=== PATIENT | female | born 1955 | race Caucasian/White ===

== ENCOUNTER → 2020-03-02 09:35 | Outpatient (CLI) | payer BC, SELFPAY ==
--- NOTE | ~2020-03-02 | MR_ITS ---
EXAMINATION: MR brain/brain stem wo con DATE: 03/02/2020 10:47 INDICATION: Chronic headache. TECHNIQUE: Magnetic resonance imaging (MRI) of the brain and brainstem was performed without intraven ous contrast. Sequences included sagittal and axial T1-weighted FSE, axial diffusion-weighted FS EPI, axial T2*-weighted GRE, axial T2-weighted FLAIR Propeller, and axial T2-weighted Propeller. Apparent diffusion coefficient (ADC) maps were created. COMPARISON: None. FINDINGS: There are scattered areas of nonspecific increased T2-weighted signal intensity in the cere bral white matter, which is within normal limits for the patient's age. There is a 1.4 cm calcified e xtra-axial mass overlying right frontoparietal region with skull thickening, consistent with a mening ioma. There is no acute ischemic infarct or intracranial hemorrhage. The ventricles are normal in siz e. There is mild mucosal thickening in the paranasal sinuses. The orbits are normal. There is a trace left mastoid effusion. IMPRESSION: 1. 1.4 cm calcified extra-axial mass overlying right frontoparietal region, consistent with a meningi maxine. Reviewed, dictated and finalized at location A. UNITY PROGRAM ASSISTANT IMPRESSION: 1. 1.4 cm calcified extra-axial mass overlying right frontoparietal region, con sistent with a meningioma.
== END ==
PROVIDERS: PCP Physician Assistant; Visit Provider Physician Assistant
DX: G44.001 Cluster headache syndrome, unspecified, intractable (principal)
CPT/HCPCS: 70551

== ENCOUNTER 2020-03-20 09:49 | Outpatient (CLI) | payer BC, SELFPAY ==
--- NOTE | ~2020-03-20 | MM_ITS ---
EXAMINATION: MM screening [facility] BI w maggi HISTORY: Screening mammogram TECHNIQUE: Craniocaudal and mediolateral oblique 3-D tomosynthesis images were obtained and synthetic 2-D images were generated. CAD analysis was submitted and interpreted. COMPARISON: No prior mammogram is available for comparison at this institution. BREAST PARENCHYMAL COMPOSITION: The breasts are heterogeneously dense, which may obscure small masses . FINDINGS: There are occasional benign calcifications. There is no evidence of suspicious mass, calcif ication, or architectural distortion to suggest malignancy in either breast. There has been no suspic ious interval change. IMPRESSION: 1. No mammographic evidence of malignancy. 2. Recommend routine screening mammography in one year. BI-RADS Category 2: Benign finding(s). Reviewed, dictated and finalized at location A. SFER WORKER
== END 2020-03-20 09:50 | disposition home or self-care (01) ==
LOC: ANHIMG 09:51
PROVIDERS: PCP Physician Assistant; Visit Provider Physician Assistant
DX: Z12.31 Encounter for screening mammogram for malignant neoplasm of breast (principal)
CPT/HCPCS: 77063; 77067

== ENCOUNTER → 2021-06-30 08:40 | Outpatient (CLI) | payer BC, SELFPAY ==
--- NOTE | ~2021-06-30 | XR_ITS ---
EXAMINATION: XR shoulder LT min 2V DATE: 06/30/2021 08:57 INDICATION: Left shoulder pain. TECHNIQUE: 4 views of left shoulder were obtained. COMPARISON: None. FINDINGS: Bone alignment is normal. No fracture. There is mild osteoarthritis of glenohumeral joint a nd moderate osteoarthritis of acromioclavicular joint. IMPRESSION: 1. Polyarticular osteoarthritis. Reviewed, dictated and finalized at location A. CORE DEVELOPER
== END ==
PROVIDERS: PCP Physician Assistant; Visit Provider Physician Assistant
DX: M25.512 Pain in left shoulder (principal); G89.29 Other chronic pain; M19.012 Primary osteoarthritis, left shoulder
CPT/HCPCS: 73030

== ENCOUNTER 2022-01-29 07:53 | Outpatient (CLI) | payer BC, SELFPAY ==
--- NOTE | ~2022-01-29 | MM_ITS ---
EXAMINATION: MM screening [facility] BI w maggi HISTORY: Screening mammogram, family history of breast cancer in her sister. TECHNIQUE: Craniocaudal and mediolateral oblique 3-D tomosynthesis images were obtained and synthetic 2-D images were generated. CAD analysis was submitted and interpreted. COMPARISON: 03/20/2020 BREAST PARENCHYMAL COMPOSITION: The breasts are heterogeneously dense, which may obscure small masses . FINDINGS: No suspicious mass, calcification, or architectural distortion are identified in either hanna ast to suggest malignancy. There has been no suspicious interval change. IMPRESSION: 1. No mammographic evidence of malignancy. 2. Recommend routine screening mammography in one year. BI-RADS Category 1: Negative Reviewed, dictated and finalized at location B.
== END 2022-01-29 07:54 | disposition home or self-care (01) ==
PROVIDERS: PCP Family Medicine; Visit Provider Physician Assistant
DX: Z12.31 Encounter for screening mammogram for malignant neoplasm of breast (principal)
CPT/HCPCS: 77063; 77067

== ENCOUNTER 2022-05-12 01:19 | Day surgery (SDC) | payer MEDICARE, SELFPAY ==
[2022-05-01 15:13] VITALS: BMI 23.0
[2022-05-12 08:52] VITALS: BP 111/96; PULSE 72; RESP 18; TEMP 36.4; O2SAT 100
--- NOTE | 2022-05-12 09:05 | WPDHPUPDATE1 ---
History and Physical Update Update Date/Time: 05/12/22 09:05 History and Physical has been reviewed, including an updated exam of the patient. There are NO changes in the patient's condition. Risks, benefits, and alternatives have been discussed and questions answered. Patient agrees to proceed with procedure.
[2022-05-12] MEDS: LACTATED RINGERS 1,000 ML 150 ML IV CONT (09:06)
--- NOTE | 2022-05-12 09:47 | WPDANESEPPF ---
Anes - Initial Pre Proc Eval Procedure: Operation Date: 05/12/22 10:00 Proposed Procedures p Colonoscopy - Ace Herbert MD Date/Time: 05/12/22 09:47 Surgeon: Ace Herbert MD Pre Op Diagnosis: change in bowel habits,constipation, hematochezia Patient Data Age: 67 Gender: F Height: 1.6 m Weight: 58.6 kg Last Vital Signs Temp 97.6 F 05/12/22 08:52 Pulse 72 05/12/22 08:52 Resp 18 05/12/22 08:52 BP 111/96 H 05/12/22 08:52 Pulse Ox 100 05/12/22 08:52 O2 Del Method Room Air 05/12/22 08:52 Allergies Allergy/AdvReac Type Severity Reaction Status Date / Time eucalyptus AdvReac Sneezing Verified 05/12/22 08:50 Home Medications Medication Instructions Recorded Confirmed Type aspirin 81 mg tablet,delayed 81 mg PO DAILY 04/28/22 05/01/22 History release (Adult Aspirin Regimen) ondansetron HCl 4 mg tablet 4 mg PO Q8H PRN Nausea 04/28/22 05/01/22 History rizatriptan 10 mg tablet (Maxalt) 10 mg PO DAILY PRN Migraine 04/28/22 05/01/22 History Headache rosuvastatin 40 mg tablet 40 mg PO DAILY 04/28/22 05/01/22 History topiramate 25 mg tablet (Topamax) 25 mg PO DAILY 04/28/22 05/01/22 History Patient hx anesthesia problems: post op nausea/vomiting Family hx anesthesia problems: none Results Review: All pre-operative results and documents have been reviewed as part of the pre-operative evaluation. [facility] Past Medical History Medical History History of actinic keratosis History of back pain Family History Family History Father Cerebrovascular accident Other Diabetes mellitus Social History Social History Smoking status: Never smoker Alcohol intake: current Alcohol use details: 5 drinks per year Substance use type: does not use Living arrangements: with family Spiritual care concerns: No Anes - Eval Final PreProcedure Day of Procedure 05/12/22 09:47 Patient weight: normal Heart: regular rate and rhythm Lungs: clear to auscultation Airway: Mallampati scale class II Neurological: alert and oriented Last oral intake: >/= 8 hours ASA classification: II Emergent: no Anesthetic plan: proceed Anesthesia type and monitoring: general GIVS and standard monitoring Results Review: All pre-operative results and documents have been reviewed as part of the pre-operative evaluation. Informed Consent: The patient's anesthetic plan and its attendant risks and benefits were discussed with the patient/family/POA. Questions were solicited and answers provided to the satisfaction of the patient/family/POA.
[2022-05-12 10:31] VITALS: BP 99/61; PULSE 67; RESP 21; O2SAT 97
[2022-05-12 10:41] VITALS: BP 102/64; PULSE 64; RESP 18; O2SAT 98
[2022-05-12 10:51] VITALS: BP 109/68; PULSE 60; RESP 16; O2SAT 100
== END 2022-05-12 11:06 | disposition home or self-care (01) ==
PROVIDERS: PCP Family Medicine; Visit Provider Internal Medicine Gastroenterology
PROC: 0DJD8ZZ Inspection of Lower Intestinal Tract, Via Natural or Artificial Opening Endoscopic (ICD-10-PCS; CPT 45378; principal; 2022-05-12 10:00)
DX: K64.8 Other hemorrhoids (principal)
CPT/HCPCS: 45378; J2704; J7120

== ENCOUNTER 2023-07-22 07:35 | Outpatient (CLI) | payer MEDICARE, SELFPAY ==
--- NOTE | ~2023-07-22 | MM_ITS ---
EXAMINATION: MM screening anyi BI w maggi HISTORY: Screening mammogram TECHNIQUE: Craniocaudal and mediolateral oblique 3-D tomosynthesis images were obtained and synthetic 2-D images were generated. CAD analysis was submitted and interpreted. COMPARISON: 01/29/2022, 03/20/2020 bilateral screening mammogram examinations BREAST PARENCHYMAL COMPOSITION: The breasts are heterogeneously dense, which may obscure small masses . FINDINGS: There is no evidence of suspicious mass, calcification, or architectural distortion to sugg est malignancy in either breast. There has been no suspicious interval change. IMPRESSION: 1. No mammographic evidence of malignancy. 2. Recommend routine screening mammography in one year. BI-RADS Category 1: Negative Reviewed, dictated and finalized at location A.
== END 2023-07-22 07:36 | disposition home or self-care (01) ==
PROVIDERS: PCP Family Medicine; Visit Provider Family Medicine Sports Medicine
DX: Z12.31 Encounter for screening mammogram for malignant neoplasm of breast (principal)
CPT/HCPCS: 77063; 77067

== ENCOUNTER 2024-08-22 08:03 | Outpatient (CLI) | payer MEDICARE, SELFPAY ==
--- NOTE | ~2024-08-22 | MM_ITS ---
EXAMINATION: MM screening anyi BI w maggi HISTORY: Screening mammogram, family history of breast cancer in her sister. TECHNIQUE: Craniocaudal and mediolateral oblique 3-D tomosynthesis images were obtained and synthetic 2-D images were generated. CAD analysis was submitted and interpreted. COMPARISON: 07/22/2023, 01/29/2022, 03/20/2020 BREAST PARENCHYMAL COMPOSITION:Dense: The breasts are heterogeneously dense, which may obscure small masses. FINDINGS: Suggestion of asymmetric density in the posterior, central right breast on MLO view. Stable parenchymal appearance of the left breast. No suspicious calcifications. IMPRESSION: Possible developing asymmetric density in the central posterior right breast on MLO view. Spot compre ssion and true lateral views, and possibly ultrasound, are recommended for further evaluation.. BI-RADS Category 0: Incomplete: Needs additional imaging evaluation. Reviewed, dictated and finalized at location . IMPRESSION: Possible developing asymmetric density in the central posterior right breast on MLO view. Spot compression and true lateral views, and possibly ultrasound, ar e recommended for further evaluation.. BI-RADS Category 0: Incomplete: Needs additional imaging evaluation.
--- OUTSIDE RECORDS SUMMARY | 2024-08-22 08:12 | XMS_ITS | Referral Summary ---
Author Organization [facility] [address] [facility] Address [address] [place] [address] Care Team Providers Care Pony Ride Attendant Name Role Phone Xiomara Call NP Primary Care Provider Vish Corona MD Unavailable [phone] Kavita Ramirez MD Unavailable [phone] Encounters Date Type Department Care Team Description 08/15/2024 10:15 AM CDT Office Visit [facility] Cardiology [address] [facility] [address] [place] [address] Vish Corona MD Atrial fibrillation, unspecified type (HCC) (Primary Dx); Paroxysmal atrial fibrillation (HCC); Mixed hyperlipidemia 07/14/2024 9:00 AM CDT Office Visit [facility] Primary Care at [address] [address] Xiomara Call NP Migraine without aura and without status migrainosus, not intractable (Primary Dx); Bilateral carotid artery stenosis; Meningioma (HCC); Mixed hyperlipidemia; Paroxysmal atrial fibrillation (HCC) 07/03/2024 Results Follow-Up [address] [address] Indira Myers NP 06/05/2024 9:30 AM STATISTICAL DEVELOPER Office Visit [facility] Women's Health Care at [address] [address] Kavita Ramirez MD Vulvar lesion (Primary Dx) from Last 3 Months Allergies No known active allergies Medications latanoprost (XALATAN) 0.005 % ophthalmic solution 1 drop nightly 3 Active dronedarone (MULTAQ) 400 mg tabletIndication s:Paroxysmal Atrial Fibrillation Take 1 tablet (400 mg total) by mouth 2 (two) times a day with meals 180 tablet 3 4 Active rosuvastatin (CRESTOR) 40 mg tablet Take 1 tablet by mouth once daily 90 tablet 2 4 Active clobetasoL (TEMOVATE) 0.05 % creamIndications :Vulvar lesion Apply topically 2 (two) times a day For up to three weeks then one week off. 60 g 1 4 Active ondansetron (ZOFRAN) 4 mg tabletIndication s:Migraine without aura and without status migrainosus, not intractable Take 1 tablet (4 mg total) by mouth every 8 (eight) hours as needed for nausea or vomiting 20 tablet 3 5 Active Eliquis 5 mg tablet TAKE 1 TABLET TWICE DAILY 180 tablet 3 5 Active rizatriptan (MAXALT) 10 mg tabletIndication s:Migraine Take 1 tablet (10 mg total) by mouth once as needed for migraine May repeat in 2 hours if unresolved. Do not exceed 30 mg in 24 hours. 18 tablet 3 5 07/15/19 26 Active magnesium gluconate (MAGONATE) 500 mg (27 mg elemental) tabletIndication s:hypomagnesemia Take 1 tablet (500 mg total) by mouth daily 08/16/19 25 Discontin ued(Thera py completed ) riboflavin, vitamin B2, 25 mg tablet Take 400 mg by mouth daily 08/16/19 25 Discontin ued(Thera py completed ) Active Problems Problem Noted Date Diagnosed Date Vulvar lesion 04/24/2024 Assessment & Plan (06/05/2024 9:34 AM STATISTICAL DEVELOPER): To continue with steroid Use reviewed. Assessment & Plan (04/24/2024 10:06 AM STATISTICAL DEVELOPER): It is looking rough today To use steroid q od x 6 weeks If not better, will consider bx. Carotid artery disease 02/20/2024 Assessment & Plan (07/14/2024 9:28 AM CDT): Pt follows with Dr Corona (Cardiology) every 6 months. Continues Rosuvastatin 40 mg and Eliquis. Chronic anticoagulation 08/23/2023 Assessment & Plan (08/23/2023 5:21 PM CDT): Chronic. Stable. Bleeding precautions discussed. If she falls and hits her head she knows she needs to seek ER evaluation. Discussed signs and symptoms are spontaneous bleed including intracranial hemorrhages Paroxysmal atrial fibrillation 06/17/2023 Assessment & Plan (07/14/2024 9:31 AM CDT): Rate controlled in office. Continuing Multaq, Eliquis. Follows with Cardio Assessment & Plan (08/23/2023 5:21 PM CDT): Chronic. Symptoms are relatively controlled with rare nighttime heart rate issues. She will continue the Multaq. She is now on chronic Eliquis. Bleeding precautions were recommended. We discussed stroke risk in AFib Senile osteopenia 05/12/2023 Assessment & Plan (05/12/2023 5:48 PM STATISTICAL DEVELOPER): Noted on review of chart. We will need a repeat bone density in 2 years to monitor Slow transit constipation 2022 Assessment & Plan (04/24/2024 10:07 AM STATISTICAL DEVELOPER): Treatments discussed Hemorrhoidal treatment reviewed. Stenosis of right carotid artery 08/18/2021 Assessment & Plan (08/23/2023 5:22 PM CDT): Chronic. Asymptomatic. Continue Eliquis and high-intensity statin. Target LDL least less than 70 Assessment & Plan (05/12/2023 5:44 PM STATISTICAL DEVELOPER): Chronic. Risk factor modification recommended with high-intensity statin and ASA. Follows with Cardiology Assessment & Plan (12/01/2021 12:43 PM CDT): Managed by Cardiology, continue with Crestor. Assessment & Plan (08/18/2021 1:08 PM CDT): We reviewed carotid US. Advised continued use of crestor, add otc coq10 at hs due to leg cramping. Will refer to cv for further evaluation and treatment. Chronic left shoulder pain 06/30/2021 Assessment & Plan (12/01/2021 12:42 PM CDT): Advised consultation with orthopedic surgeon for further evaluation and treatment. Assessment & Plan (08/18/2021 1:05 PM CDT): She will continue with PT. Advised further eval with ortho, but she declines at this time. Assessment & Plan (06/30/2021 11:18 AM STATISTICAL DEVELOPER): Will refer to PT for further evaluation, will order xray and will notify her of results as they are available We discussed ortho referral pending improvement in range of motion with PT Vitreous floaters of both eyes 12/31/2020 Assessment & Plan (08/18/2021 1:07 PM CDT): Continue with care per Dr. Alvarado, asked her to notify us of results of appt this week. Discussed potential for discontinuing the evista, however advised her to not stop it abruptly. Assessment & Plan (07/13/2021 10:10 AM CDT): Continue per Dr. Loren Alvarado with [facility] Assessment & Plan (12/31/2020 8:48 AM CDT): Advised ophtho consult, will refer Migraine without aura and wi thout status migrainosus, not intractable 12/31/2020 Assessment & Plan (07/14/2024 9:30 AM CDT): Chronic, pt uses prn Rizatriptan and works well. Discussed preventative medication as she average 12-15 migraines/month. Pt opts to continue the prn Rizatriptan as it has worked well. Assessment & Plan (08/23/2023 5:21 PM CDT): Chronic. Doing well. Continue p.r.n. rizatriptan for flares Assessment & Plan (05/12/2023 5:44 PM STATISTICAL DEVELOPER): Chronic. Patient reports headache frequency did not improve with initiation of topiramate over a year ago. She notes that she has had some general suppress appetite with the topiramate. Given patient notes minimal benefit from the topiramate we will go ahead and trial off of it. Continue p.r.n. rizatriptan for abortive. Patient denies any contraindications as she denies any history cardiac issues that may affect use this or increased risk of coronary artery disease/vasospastic contraindications. Reports previously her insurance refused to cover Nurtec and it was very expensive Assessment & Plan (12/01/2021 12:42 PM CDT): Will add Topamax 25 mg at bedtime for the 1st week, then she will progress to 25 mg twice daily. We discussed increasing the strength of this medication pending improvement in symptoms. She was reminded that she must take this medication daily. Assessment & Plan (08/18/2021 1:06 PM CDT): Discussed adding topamax or elavil for prevention and changing maxalt. She declines at this time. Advised sooner appt with neuro and helping her arrange the appt change - she wants to wait and monitor headaches until november appt with their office. Assessment & Plan (06/30/2021 11:17 AM STATISTICAL DEVELOPER): Add prn maxalt. Discussed adding topamax or elavil if needing maxalt frequently. Encouraged ophtho appt as planned. Assessment & Plan (12/31/2020 8:48 AM CDT): Continue with care per neurologist. Will refill her zofran that she uses prn. Hyperlipidemia 10/28/2020 Assessment & Plan (07/14/2024 9:28 AM CDT): Most recent lipid panel controlled. Continues Rosuvastatin. Assessment & Plan (08/23/2023 5:21 PM CDT): Chronic. Controlled. Continue rosuvastatin 40 mg daily Assessment & Plan (05/12/2023 5:43 PM STATISTICAL DEVELOPER): Chronic. Tolerates rosuvastatin. Continue. Optimal LDL goal less than 70 for risk factor prevention. Continue ASA. Follows with Cardiology. Strong family history of cardiovascular disease Assessment & Plan (12/01/2021 12:42 PM CDT): Advised patient to follow a heart healthy diet, low in red meat and pork, and increase veggies. Advised exercise 4x/week for 30min each session. Assessment & Plan (07/13/2021 10:17 AM CDT): Encouraged patient to follow low fat/low chol diet like the Mediterranean diet. Increase good fats in the diet. Increase exercise. Monitor labs as needed. Continue Crestor. Assessment & Plan (06/30/2021 11:16 AM STATISTICAL DEVELOPER): We reviewed recent labs Will start crestor at hs, advised repeat flp and ast/alt in 8-12w Assessment & Plan (12/31/2020 8:47 AM CDT): Fasting labs entered, will notify patient of results as available Encouraged continued healthy eating, exercise Meningioma 03/25/2020 Assessment & Plan (07/14/2024 9:29 AM CDT): Chronic, stable on prior imaging. Next imaging due 11/2026. If any new or red flag sx arise, pt knows to let me know. Assessment & Plan (08/23/2023 5:20 PM CDT): Chronic. Stable on prior imaging. Next imaging will be due in 2026. If any new or red flag symptoms occur she will let me know Assessment & Plan (05/12/2023 5:43 PM STATISTICAL DEVELOPER): Chronic. Stable on prior imaging. Patient reports she was told next MRI due in 5 years to monitor. We will be doing 2026. Patient reports her headache disorder was present prior to the most recent MRI. Assessment & Plan (08/18/2021 1:06 PM CDT): Continue with care per neurology Assessment & Plan (07/13/2021 10:09 AM CDT): Continue to follow per Neurosurgery. Last MRI of the brain was in November of 2020 and was stable. Assessment & Plan (06/24/2020 11:49 AM STATISTICAL DEVELOPER): Has appt pending for repeat mri and with neurologist that she will keep Assessment & Plan (03/25/2020 10:45 AM STATISTICAL DEVELOPER): appt pending with Dr. Dutta, will await results. Heart murmur 02/22/2020 Assessment & Plan (08/18/2021 1:06 PM CDT): We reviewed recent echo. Will refer to cv for further evaluation and treatment. Assessment & Plan (02/22/2020 10:35 AM CDT): Advised echo to evaluate this history further. She refuses at this time. Resolved Problems Problem Noted Date Diagnosed Date Resolved Date Postmenopausal bleeding 05/12/2023 02 Assessment & Plan (04/24/2024 10:06 AM STATISTICAL DEVELOPER): None since her last visit Assessment & Plan (10/18/2023 1:57 PM CDT): Options discussed She would like to watch and wait She will call if she has any bleeding Assessment & Plan (09/27/2023 1:20 PM CDT): Emb done today. Assessment & Plan (08/04/2023 10:56 AM CDT): Patient had 2 episodes of what we believe is postmenopausal vaginal spotting back in February and March. Her exam appears normal today. We are going to proceed with a pelvic ultrasound to check her endometrial lining and rule out the potential endometrial polyp. We discussed endometrial biopsy today and results of the ultrasound will determine if we will proceed with biopsy. If patient would have any future bleeding, she will notify my office. She is agreeable to the plan. Assessment & Plan (05/12/2023 5:45 PM STATISTICAL DEVELOPER): Patient notes that she has had 2 brief episodes vaginal spotting over the last few months. Denies any heavy bleeding. Has currently not been under the care of nps. No current vaginal bleeding. We will refer her to Gynecology for further evaluation. If there are significant concerns that she may need pelvic ultrasound and endometrial biopsy but will defer to specialist. I did stress the importance of making sure this does get fully evaluated Blood in stool 2022 05/12/2023 Retinal hemorrhage of both eyes 07/13/2021 05/12/2023 Assessment & Plan (12/01/2021 12:43 PM CDT): She will continue with care per Ophthalmology Assessment & Plan (08/18/2021 1:07 PM CDT): Continue with care per Dr. Alvarado, asked her to notify us of results of appt this week. Discussed potential for discontinuing the evista, however advised her to not stop it abruptly. Assessment & Plan (07/13/2021 10:23 AM CDT): Per Dr. Alvarado, patient has bilateral retinal hemorrhage. She is requesting a vascular workup as there is concern for ocular ischemic syndrome. EKG in the office was negative for AFib. Will go ahead and order an echo as well as carotid Dopplers. I also ordered labs to rule out anemia as well as inflammation/vasculitis and diabetes as well as syphilis. Patient states she had an episode of dizziness last week but it resolved promptly. [place] like her blood pressure may have dropped a little creating the dizziness. No syncope. If she has any syncopal type episodes or his visual changes especially if she has any current needs are black spots that occur she is to immediately go to the ER. She voices understanding. Encouraged patient to follow-up with her PCP to review results. May need continued workup with Neurology verses Cardiology pending lab and imaging results. BMI 24.0-24.9, adult 12/31/2020 022 Assessment & Plan (12/31/2020 8:11 AM CDT): Weight/BMI is in healthy range. Continue healthy lifestyle to maintain. Menopause 10/28/2020 05/12/2023 BMI 25.0-25.9,adult 06/24/2020 05/12/19 24 Assessment & Plan (06/24/2020 9:50 AM STATISTICAL DEVELOPER): Weight/BMI is in healthy range. Continue healthy lifestyle to maintain. Chronic left-sided headaches 06/24/2020 07/13/2021 Assessment & Plan (06/24/2020 11:49 AM STATISTICAL DEVELOPER): Advised sleep study, which she declines at this time. Advised otc boil and bite mouth guard. Advised cutting back on jawbreakers and popcorn. Need for diphtheria-tetanus- pertussis (Tdap) vaccine 06/24/2020 06/30/2021 Assessment & Plan (06/24/2020 11:49 AM STATISTICAL DEVELOPER): Will update tdap today. Nausea 03/25/2020 05/12/2023 Assessment & Plan (03/25/2020 10:45 AM STATISTICAL DEVELOPER): Add [place] Encounter to establish care 02/22/2020 02/22/2020 Snoring 02/22/2020 05/12/2023 Assessment & Plan (06/24/2020 11:49 AM STATISTICAL DEVELOPER): Advised sleep study - she declines at this time. Assessment & Plan (02/22/2020 10:35 AM CDT): We discussed that her headaches could be secondary to a sleep disorder. She was advised to complete a sleep study and refused at this time. Medicare annual wellness visit, subsequent 02/22/2020 05/12/2023 Assessment & Plan (02/22/2020 10:35 AM CDT): Will order screening mammogram Cluster headache 05/25/2018 08/04/2020 Assessment & Plan (03/25/2020 10:46 AM STATISTICAL DEVELOPER): She declines abortive medication, such as maxalt, at this time Assessment & Plan (02/22/2020 10:34 AM CDT): Add inderal tid, will use ibuprofen otc prn headache F/u in 4w to review efficacy of inderal Will order mri of head for further evaluation Gastroesophageal reflux disease 02/17/2017 06/30/2021 Assessment & Plan (12/31/2020 8:47 AM CDT): Stable, continue medication same and refill as needed Assessment & Plan (06/24/2020 11:48 AM STATISTICAL DEVELOPER): Stable. Will continue medication same at this time. Immunizations Immunization Administration Dates Next Due Flucelvax Influenza Quad 04/25/2019 Influenza, Quad, Adjuvantate d, Intramuscular 02/09/2023 Influenza, Quadrivalent, Romina l Culture-based MDCK, Preservative Free, Antibiotic Free, Intramuscular 02/13/2022 Influenza, Quadrivalent, Spl it, Preservative Free, Intramuscular 03/24/2021,01/02/2020 Influenza, Trivalent, Adjuva nted, Intramuscular 01/18/2024 Influenza, Trivalent, Cell Culture-based MDCK, Preservative Free, Antibiotic Free, Intramuscular 04/25/2019 Influenza, Unspecified 02/04/2022,2021(Deferred: Patient Refused) Pfizer SARS-CoV-2 Monovalent Vaccination (12+ Yrs) GORDON-READY TO USE 10/29/2021 Pfizer SARS-CoV-2 Monovalent Vaccination (12+ Yrs) PURPLE 03/17/2021,08/04/2020,07/09/2020 Pneumococcal Conjugate Pcv20 05/14/2022 Tdap 06/24/2020 Social History Tobacco Use Types Packs/Day Years Used Date Smoking Tobacco: Never Smokeless Tobacco: Never Tobacco Cessation:Counseling Given: Not Answered Alcohol Use Standard Drinks/Week Comments Yes 0 (1 standard drink = 0.6 oz pur e alcohol) AUDIT-C Answer Date Recorded Q1: How often do you have a drink containing alc ohol? Monthly or less 08/04/2023 Q2: How many drinks containi ng alcohol do you have on a typical day when you are drinking? 1 or 2 08/04/2023 Q3: How often do you have si x or more drinks on one occasion? 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[employer] - [employer] Not on file Not on file Not on file Last Filed Vital Signs Vital Sign Reading Time Taken Comments Blood Pressure 156/77 08/15/2024 9:42 AM CDT Pulse 55 08/15/2024 9:42 AM CDT Temperature 37.1 C (98.7 F) 08/15/2024 9:42 AM CDT Respiratory Rate 18 01/01/2022 2:10 PM CDT Oxygen Saturation 97% 08/15/2024 9:42 AM CDT Inhaled Oxygen Concentration - - Weight 62.1 kg (136 lb 12.8 oz) 08/15/2024 9:42 AM CDT Height 157.5 cm (5' 2.01 ) 08/15/2024 9:42 AM CD T Body Mass Index 25.01 08/15/2024 9:42 AM CDT Plan of Treatment Not on file Procedures Procedure Name Priority Date/Time Associated Diagnosis Comments ECG 12-LEAD Routine 08/15/2024 9:39 AM CDT Atrial fibrillation, unspecified type (HCC) THYROID FUNCTION CASCADE Routine 07/03/2024 7:59 AM CDT Mixed hyperlipidemia CBC WITH AUTO DIFFERENTIAL Routine 07/03/2024 7:59 AM CDT Mixed hyperlipidemia LIPID PANEL Routine 07/03/2024 7:59 AM CDT Mixed hyperlipidemia COMPREHENSIVE METABOLIC PANEL Routine 07/03/2024 7:59 AM CDT Mixed hyperlipidemia PAP AND HPV, REFLEX TO HPV GENOTYPES Routine 08/04/2023 10:33 AM CDT Well woman exam HM MAMMOGRAPHY Routine 07/22/2023 HEPATITIS C ANTIBODY Routine 05/24/2023 7:29 AM STATISTICAL DEVELOPER Laboratory examination ordered as part of a complete physical examination Encounter for hepatitis C screening test for low risk patient DEXA AXIAL SKELETON BONE DENSITY 1 OR MORE SITES Schedule Routine, Read Routine (OP Routine) 11/26/2022 8:40 AM CDT Postmenopausal status COLONOSCOPY Routine 05/12/2022 from Last 3 Months or Most Recently Relevant to Health Maintenance Results * ECG 12 lead (08/15/2024 9:39 AM CDT) us Vish Corona MD ECG ORDERABLES Edited Result - Final * Thyroid Function [place] (07/03/2024 7:59 AM CDT) TSH 1.89 0.40 - 4.50 mIU/L [facility] Blood 07/03/2024 7:59 AM CDT 07/03/2024 8:00 AM CDT Narrative [facility] - 07/03/2024 5:15 PM CDT FASTING:YES FASTING: YES us Dinora Burkett NP LAB BLOOD ORDERABLES Fin al Result [facility] [address] [place] [address] * CBC with auto differential (07/03/2024 7:59 AM CDT) WBC 5.8 3.8 - 10.8 Thousand/u L [facility] RBC, POC 4.52 3.80 - 5.10 Million/uL [facility] Hgb 14.0 11.7 - 15.5 g/dL [facility] Hct 42.6 35.0 - 45.0 % [facility] MCV 94.2 80.0 - 100.0 fL [facility] MCH 31.0 27.0 - 33.[address] [facility] MCHC 32.9 32.0 - 36.0 g/dL [facility] Comment: For adults, a slight decrease in the calculated MCHC value (in the range of 30 to 32 g/dL) is most likely not clinically significant; however, it should be interpreted with caution in correlation with other red cell parameters and the patient's clinical condition. Rdw 13.1 11.0 - 15.0 % [facility] Platelets 225 140 - 400 Thousand/u L [facility] MPV 10.5 7.5 - 12.[address] [facility] Neutrophils, abs 3,126 1,500 - 7,800 cells/uL [facility] Lymphocytes, abs 1,786 850 - 3,900 cells/uL [facility] Monocyte abs 667 200 - 950 cells/uL [facility] Eosinophils, abs 180 15 - 500 cells/uL [facility] Basophils, abs 41 0 - 200 cells/uL [facility] Neutrophils 53.9 % [facility] Lymphocyte pct 30.8 % [facility] Monocytes 11.5 % [facility] Eosinophils 3.1 % [facility] Basophils 0.7 % [facility] Blood 07/03/2024 7:59 AM CDT 07/03/2024 8:00 AM CDT Narrative [facility] - 07/03/2024 5:15 PM CDT FASTING:YES FASTING: YES Dinora Burkett NP LAB BLOOD ORDERABLES Fin al Result [facility] [address] [place] [address] * Lipid panel (07/03/2024 7:59 AM CDT) Cholesterol 138 <200 mg/dL [facility] HDL 62 > OR = 50 mg/dL [facility] Triglycerides 104 <150 mg/dL [facility] LDL 57 mg/dL (calc) [facility] Comment: Reference range: <100 Desirable range <100 mg/dL for primary prevention; <70 mg/dL for patients with CHD or diabetic patients with > or = 2 CHD risk factors. LDL-C is now calculated using the Chaz calculation, which is a validated novel method providing better accuracy than the Friedewald equation in the estimation of LDL-C. Alverto BORJAS et al. MILAD. 2013;310(19): 3463-5225 (http://education.[employer]/faq/AHG845) Chol/HDL ratio 2.2 <5.0 (calc) [facility] Non-HDL, (LDL+VLDL) 76 <130 mg/dL (calc) [facility] Comment: For patients with diabetes plus 1 major ASCVD risk factor, treating to a non-HDL-C goal of <100 mg/dL (LDL-C of <70 mg/dL) is considered a therapeutic option. Blood 07/03/2024 7:59 AM CDT 07/03/2024 8:00 AM CDT Narrative [facility] - 07/03/2024 5:15 PM CDT FASTING:YES FASTING: YES [facility] BLOOD ORDERABLES Fin al Result [facility] [address] [place] [address] * Comprehensive metabolic panel (07/03/2024 7:59 AM CDT) [facility] Glucose 88 65 - 99 mg/dL [facility] Comment: Fasting reference interval BUN 14 7 - 25 mg/dL [facility] Creatinine 0.87 0.50 - 1.05 mg/dL [facility] eGFR 73 > OR = 60 mL/min/1.7 3m2 [facility] BUN/creat ratio SEE NOTE: (calc) [facility] Comment: Not Reported: BUN and Creatinine are within reference range. Sodium 142 135 - 146 mmol/L [facility] Potassium, pl 4.1 3.5 - 5.3 mmol/L [facility] [place] Chloride 105 98 - 110 mmol/L [facility] CO2 29 20 - 32 mmol/L [facility] Calcium 9.5 8.6 - 10.4 mg/dL [facility] Protein, sr 7.0 6.1 - 8.1 g/dL [facility] Albumin 4.5 3.6 - 5.1 g/dL [facility] GLOBULIN 2.5 1.9 - 3.7 g/dL (calc) [facility] Alb/glob ratio 1.8 1.0 - 2.5 (calc) [facility] Bilirubin, total 0.8 0.2 - 1.2 mg/dL [facility] Alk phos 55 37 - 153 U/L [facility] AST 19 10 - 35 U/L [facility] ALT (SGPT) 15 6 - 29 U/L [facility] Blood 07/03/2024 7:59 AM CDT 07/03/2024 8:00 AM CDT Narrative [facility] - 07/03/2024 5:15 PM CDT FASTING:YES FASTING: YES Dinora Burkett MACHINE CRATER LAB BLOOD ORDERABLES Fin al Result [facility] [address] [place] [address] * Pap and HPV, reflex to HPV Genotypes (08/04/2023 10:33 AM CDT) CLINICAL INFORMATION: [facility] Comment:SCREENING LMP [facility] Comment:POSTMENO Previous Pap [facility] Comment:NONE GIVEN Prev. Bx [facility] [facility] Comment:NONE GIVEN SOURCE: [facility] Comment:Cervix, Endocervix Pap, specimen adequacy [facility] Comment:SATISFACTORY FOR YOLI LUATION HPV interp [facility] Comment: Cytology Results: Negative for intraepithelial lesion or malignancy. Atrophic pattern; predominantly parabasal cells COMMENTS [facility] Comment: This Pap test has been evaluated with computer assisted technology. General Sales Manager [facility] [place] Comment: AMW, CT(ASCP) CT screening location: [place] [address] [address] RAJENDRA [address]h [address] Review lock and dam equipment repairer [facility] Comment: MMW, CT(ASCP) CT screening location: [place] [address] [address] [place]A [place] [address] Comment [facility] Comment: EXPLANATORY NOTE: The Pap is a screening test for cervical cancer. It is not a diagnostic test and is subject to false negative and false positive results. It is most reliable when a satisfactory sample, regularly obtained, is submitted with relevant clinical findings and history, and when the Pap result is evaluated along with historic and current clinical information. Human papillomavirus DNA, High Risk E6/E7 Not Detected NOT DETECTED [facility] Comment: Not Detected High Risk HPV types (16,18,31,33,35,39,45,51,52, 56,58,59,66,68) were not detected. Other HPV types which cause anogenital lesions may be present. The significance of the other types of HPV in malignant processes has not been established. Methodology: Real Time PCR Thin prep 08/04/2023 10:3 3 AM CDT 08/05/2023 1:25 AM CDT Melodie Sanchez NP LAB CYTOLOGY ORDERABLES Final Re sult [place] [address] [place] [address] [place] [address] [facility] [place] [address] * HM MAMMOGRAPHY (07/22/2023) Mammography Normal Historical Provider HEALTH MAINTENANCE Final Result * Hepatitis C antibody Blood (05/24/2023 7:29 AM STATISTICAL DEVELOPER) Hep C Ab NON-REACTI VE NON-REACT [place] [facility] Comment: HCV antibody was non-reactive. There is no laboratory evidence of HCV infection. In most cases, no further action is required. However, if recent HCV exposure is suspected, a test for HCV RNA (test code 71057) is suggested. For additional information please refer to http://education.[employer]/faq/WWR50i8 (This link is being provided for informational/ educational purposes only.) Blood 05/24/2023 7:29 AM STATISTICAL DEVELOPER 05/24/2023 7:29 AM STATISTICAL DEVELOPER Narrative [facility] - 05/26/2023 2:05 AM STATISTICAL DEVELOPER FASTING:YES FASTING: YES Jaylin King MD LAB MICROBIOLOGY - GEN ERAL ORDERABLES Final Result [facility] [address] [place] [address] * Dexa Axial Skeleton Bone Density 1 or 2 Site (11/26/2022 8:40 AM CDT) Anatomical Region Laterality Modality Body N/A Mammography 11/26/2022 4:53 PM CDT Narrative 11/26/2022 4:54 PM CDT EXAM DESCRIPTION: DEXA AXIAL SKELETON BONE DENSITY 1 OR MORE SITES REASON FOR STUDY: 67 y/o year old F with given history of: Post menopausal status. Prior fracture Cds Sales Advisor/Model: Imnish A (S/N [id number]) CLINICAL INFORMATION: Current height: 63 inches Maximum height: 63.5 inches Weight: 132 pounds Risk factors: Prior fracture COMPARISON: None available FINDINGS: AP LUMBAR SPINE L1-L4: Total BMD is 0.959 g/cm2 T-score is -0.8 LEFT HIP: Total BMD is 0.730 g/cm2 T-score is -1.7 Femoral neck BMD is 0.590 g/cm2 T-score is -2.3 FRAX: 10 year risk for a major osteoporotic fracture is 19 %, 10 year risk for a hip fracture is 3.5 % IMPRESSION: Low bone mass REFERENCE: Bone mineral density: Normal (T-score above or = -1.0) Low bone mass (T-score between -1.0 and -2.5) replaces the previously used term osteopenia Osteoporosis (T-score = or below -2.5) Medical evaluation for secondary causes of low bone mineral density may be appropriate. FRAX is a World Health Organization validated fracture risk assessment tool that calculates a person's 10 year probability of a major osteoporosis related fracture and hip fracture. According to the National Osteoporosis Foundation guidelines, postmenopausal women and men age 50 or older with low bone mass and a 10 year probability of a major osteoporosis related fracture = or greater than 20% or a 10 year probability of a hip fracture = or greater than 3% should be considered for treatment. For further information, including treatment recommendations, please refer to the 2019 ISCD Official Positions (http://www.iscd.org) and the NOF's Clinician's Guide to Prevention and Treatment of Osteoporosis (http://www.nof.org/professionals/clinical-guidelines) THIS IS AN ELECTRONICALLY VERIFIED FINAL REPORT 11/26/2022 4:54 PM - Electronically signed by Sadie Garduno M.D. TW: TW Report ID: [id number] Reading Location: [id number] Procedure Note Sadie Garduno MD - 11/26/2022 EXAM DESCRIPTION: DEXA AXIAL SKELETON BONE DENSITY 1 OR MORE SITES REASON FOR STUDY: 67 y/o year old F with given history of: Post menopausal status. Prior fracture Cds Sales Advisor/Model: Imnish A (S/N [id number]) CLINICAL INFORMATION: Current height: 63 inches Maximum height: 63.5 inches Weight: 132 pounds Risk factors: Prior fracture COMPARISON: None available FINDINGS: AP LUMBAR SPINE L1-L4: Total BMD is 0.959 g/cm2 T-score is -0.8 LEFT HIP: Total BMD is 0.730 g/cm2 T-score is -1.7 Femoral neck BMD is 0.590 g/cm2 T-score is -2.3 FRAX: 10 year risk for a major osteoporotic fracture is 19 %, 10 year risk for ahip fracture is 3.5 % IMPRESSION: Low bone mass REFERENCE: Bone mineral density: Normal (T-score above or = -1.0) Low bone mass (T-score between -1.0 and -2.5) replaces thepreviously used term osteopenia Osteoporosis (T-score = or below -2.5) Medical evaluation for secondary causes of low bone mineral density may be appropriate. FRAX is a World Health Organization validated fracture risk assessmenttool that calculates a person's 10 year probability of a major osteoporosisrelated fracture and hip fracture. According to the National OsteoporosisFoundation guidelines, postmenopausal women and men age 50 or older with low bonemass and a 10 year probability of a major osteoporosis related fracture = or greater than 20% or a 10 year probability of a hip fracture = or greaterthan 3% should be considered for treatment. For further information, including treatment recommendations, please referto the 2019 ISCD Official Positions (http://www.iscd.org) and the NOF's Clinician's Guide to Prevention and Treatment of Osteoporosis (http://www.nof.org/professionals/clinical-guidelines) THIS IS AN ELECTRONICALLY VERIFIED FINAL REPORT 11/26/2022 4:54 PM - Electronically signed by Sadie Garduno M.D. TW: TW Report ID: [id number] Reading Location: [place] [address] Kingsley Denise MD IMG DXA PROCEDURES Final Resu lt * Colonoscopy (05/12/2022) Anatomical Region Laterality Modality Other Historical Provider ENDOSCOPY PROCEDURES Irene aguilar Result from Last 3 Months or Most Recently Relevant to Health Maintenance Insurance MEDICARE [facility] CLAIMS OFFICE MEDICARE [facility] MEDICARE SUPPLEMENT [facility] MEDICARE [facility]PPLEMENT [facility] CLAIMS OFFICE Care Teams Pony Ride Attendant Relationship Specialty Start Date End Date Xiomara Call NP [address] [place] [address] PCP - General Family Medicine 07/14/24 Vish Corona MD [address] [facility] [address] [place] [address] Consulting Physician Cardiology 07/14/24 Kavita Ramirez MD [address] [place] [address] [address] [place] [address] Consulting Physician Obstetrics and Gynecology 07/14/24
--- OUTSIDE RECORDS SUMMARY | 2024-08-22 08:12 | XMS_ITS | Encounter Summary ---
Author Organization [facility] Facility Care Team Providers Care Factory Maintenance Manager Name Role Phone Any Vasquez Primary Care Provider [phone] Kingsley Denise MD Primary Care Provider [phone] Jaylin King MD Primary Care Provider Xiomara Call NP Primary Care Provider [phone] Vish Corona MD Unavailable [phone] Kavita Ramirez MD Unavailable [phone] Encounter Details Date Type Department Care Team (Latest Contact Info) Description 02/01/2018 Orders Only [facility] CLINCONV ProviderIsaias MD [address] [place], [place] [id number] Social History Tobacco Use Types Packs/Day Years Used Date Smoking Tobacco: Never Assessed Comments Unknown Sex and Gender Information Value Date Recorded Sex Assigned at Not on file Legal Sex Female 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 Historical Provider Final Res ult documented in this encounter Visit Diagnoses Not on filedocumented in this encounter Care Teams Factory Maintenance Manager Relationship Specialty Start Date End Date Any Vasquez PA PCP - General Product Management Specialist 02/20/20 01/13/22 Kingsley Denise MD PCP - General Family Medicine 01/14/22 05/27/23 Jaylin King MD PCP - General Family Medicine 05/28/23 07/13/24 Xiomara Call NP [address] [facility] [address] [place], [place] [id number] PCP - General Family Medicine 07/14/24 Vish Corona MD [address] [facility] [address] [place] [address] Consulting Physician Cardiology 07/14/24 Kavita Ramirez MD [address] [facility] [address] [place] [address] Consulting Physician Obstetrics and Gynecology 07/14/24 documented as of this encounter
--- OUTSIDE RECORDS SUMMARY | 2024-08-22 08:12 | XMS_ITS | Clinical Summary ---
Author Organization [facility] [address] [facility] Address [address] [place] [address] Care Team Providers Care Director Of Revenue Cycle Management Name Role Phone Xiomara Call NP Primary Care Provider [phone] Vish Corona MD Unavailable [phone] Kavita Ramirez MD Unavailable [phone] Allergies No known active allergies Medications latanoprost [...] 04/24/2024 Assessment & Plan (06/05/2024 9:34 AM LUBE MAN): To continue with steroid Use reviewed. Assessment & Plan (04/24/2024 10:06 AM LUBE MAN): It is looking rough today To use [...] 05/12/2023 Assessment & Plan (05/12/2023 5:48 PM LUBE MAN): Noted on review of chart. We will need a repeat bone density in 2 years to monitor Slow transit constipation 2022 Assessment & Plan (04/24/2024 10:07 AM LUBE MAN): Treatments discussed Hemorrhoidal treatment reviewed. Stenosis of right carotid artery 08/18/2021 Assessment & Plan (08/23/2023 5:22 PM CDT): Chronic. Asymptomatic. Continue Eliquis and high-intensity statin. Target LDL least less than 70 Assessment & Plan (05/12/2023 5:44 PM LUBE MAN): Chronic. Risk factor modification recommended with high-intensity [...] time. Assessment & Plan (06/30/2021 11:18 AM LUBE MAN): Will refer to PT for further evaluation, [...] CDT): Continue per Dr. Loren Alvarado with [facility] Assessment & Plan (12/31/2020 8:48 [...] flares Assessment & Plan (05/12/2023 5:44 PM LUBE MAN): Chronic. Patient reports headache frequency did not [...] office. Assessment & Plan (06/30/2021 11:17 AM LUBE MAN): Add prn maxalt. Discussed adding topamax or [...] daily Assessment & Plan (05/12/2023 5:43 PM LUBE MAN): Chronic. Tolerates rosuvastatin. Continue. Optimal LDL goal [...] Crestor. Assessment & Plan (06/30/2021 11:16 AM LUBE MAN): We reviewed recent labs Will start crestor [...] know Assessment & Plan (05/12/2023 5:43 PM LUBE MAN): Chronic. Stable on prior imaging. Patient reports [...] stable. Assessment & Plan (06/24/2020 11:49 AM LUBE MAN): Has appt pending for repeat mri and with neurologist that she will keep Assessment & Plan (03/25/2020 10:45 AM LUBE MAN): appt pending with Dr. Dutta, will await results. Heart murmur 02/22/2020 Assessment & Plan (08/18/2021 1:06 PM CDT): We reviewed recent echo. Will refer to cv for further evaluation and treatment. Assessment & Plan (02/22/2020 10:35 AM CDT): Advised echo to evaluate this history further. She refuses at this time. Resolved Problems Problem Noted Date Diagnosed Date Resolved Date Postmenopausal bleeding 05/12/202305/27 Assessment & Plan (04/24/2024 10:06 AM LUBE MAN): None since her last visit Assessment & [...] plan. Assessment & Plan (05/12/2023 5:45 PM LUBE MAN): Patient notes that she has had 2 brief episodes vaginal spotting over the last few months. Denies any heavy bleeding. Has currently not been under the care of kiln tester. No current vaginal bleeding. We will refer [...] dizziness last week but it resolved promptly. [place] like her blood pressure may have dropped [...] 24 Assessment & Plan (06/24/2020 9:50 AM LUBE MAN): Weight/BMI is in healthy range. Continue healthy lifestyle to maintain. Chronic left-sided headaches 06/24/2020 07/13/2021 Assessment & Plan (06/24/2020 11:49 AM LUBE MAN): Advised sleep study, which she declines at this time. Advised otc boil and bite mouth guard. Advised cutting back on jawbreakers and popcorn. Need for diphtheria-tetanus- pertussis (Tdap) vaccine 06/24/2020 06/30/2021 Assessment & Plan (06/24/2020 11:49 AM LUBE MAN): Will update tdap today. Nausea 03/25/2020 05/12/2023 Assessment & Plan (03/25/2020 10:45 AM LUBE MAN): Add prn zofran Encounter to establish care 02/22/2020 02/22/2020 Snoring 02/22/2020 05/12/2023 Assessment & Plan (06/24/2020 11:49 AM LUBE MAN): Advised sleep study - she declines at [...] 08/04/2020 Assessment & Plan (03/25/2020 10:46 AM LUBE MAN): She declines abortive medication, such as maxalt, [...] needed Assessment & Plan (06/24/2020 11:48 AM LUBE MAN): Stable. Will continue medication same at this time. Encounters Date Type Department Care Team Description 08/15/2024 10:15 AM CDT Office Visit [facility] Cardiology [address] [place] [address] Vish Corona MD Atrial fibrillation, unspecified type (HCC) (Primary Dx); Paroxysmal atrial fibrillation (HCC); Mixed hyperlipidemia 07/14/2024 9:00 AM CDT Office Visit [facility] Primary Care at [address] [phone] Xiomara Call NP Migraine without aura and without status migrainosus, not intractable (Primary Dx); Bilateral carotid artery stenosis; Meningioma (HCC); Mixed hyperlipidemia; Paroxysmal atrial fibrillation (HCC) 07/03/2024 Results Follow-Up [address] [address] Indira Myers NP 06/05/2024 9:30 AM LUBE MAN Office Visit [facility] Care at [address] [address] Kavita Ramirez MD Vulvar lesion (Primary Dx) from Last 3 Months Immunizations Immunization Administration Dates Next Due Flucelvax [...] 03/17/2021,08/04/2020,07/09/2020 Pneumococcal Conjugate Pcv20 05/14/2022 Tdap 06/24/2020 Surgical History Surgery Date Site/Laterality Comments FOOT SURGERY x 2 WRIST SURGERY OVARIAN CYST REMOVAL Medical History Medical History Date Comments Headache GERD (gastroesophageal reflux disease) 10 years Meningioma (HCC) Gastroesophageal reflux disease 02/17/2017 Arthritis Migraines June 2019 Tinnitus Retinal hemorrhage of both eyes 07/13/2021 Atrial fibrillation, new onset (HCC) 2% Chickenpox Family History Medical History Relation Name Comments Diabetes Father Kj Heart disease Father Kj Stroke Father Kj Heart attack Mother Ivania Heart disease Mother Ivania Diabetes Sister 1 Sarah Heart disease Sister 1 Sarah Stent Sister 1 Sarah Thyroid disease Sister 2 Breast cancer Sister 3 LeEtta Cancer Sister 3 Miguelina Relation Name Status Comments Father Kj Mother Ivania Sister 1 Sarah Sister 2 Alive Sister 3 Miguelina Social History Tobacco Use Types Packs/Day Years [...] on file Legal Sex Female 12:03 AM LUBE MAN Gender Identity Female 12/26/2020 9:54 PM CDT Sexual Orientation Straight 12/26/2020 9: 54 PM CDT Occupation Industry 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 Job End Date 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 - [employer] Not on file Not on file Not on file Obstetrics History Para Term AB IAB SAB Ectopic Multiple Livin g Live Births 0 0 0 0 0 0 0 0 0 0 0 Last Filed Vital Signs Vital Sign Reading [...] 08/15/2024 9:42 AM CDT Plan of Treatment Health Maintenance Due Date Last Done Comments Zoster Vaccine (1 of 2) 2007 Covid-19 Vaccine ( season) 2024 01/18/2024, 02/09/2023, 10/12/2022, Additional history exists Hepatitis B Screening 08/22/2024 Postpo yong from 1975 (Patient declined, but will receive in the future) Well Visit 65+ 08/22/2024 08/23/2023, 04/26, 02/22/2020 Breast Cancer Screening-Mammogram 10/25/2024 07/22/2023, 03/20/2020, 07/16/2016 Postponed from 07/21/2024 (Patient declined, but will receive in the future) Osteoporosis Screening-Bone Density Scan 11/26/2024 11/26/2022, 10/29/2020 Depression Screening 07/14/2025 07/14/2024, 06/05/2024, 10/18/2023, Additional history exists Fall Risk Assessment 07/14/2025 07/14/2024, 05/12/2023, 05/14/2022, Additional history exists DTaP/Tdap/Td Vaccine (2 - Td or Tdap) 06/24/2030 06/24/2020 Colon Cancer Screening-Colonoscopy 05/12/2032 05/12/2022, 01/09/2016 Pneumococcal vaccine 65+ Completed 05/14/2022 Hepatitis C Screening Completed 05/24/2023 Cervical Cancer Screening Discontinued 08/04/2023 Influenza Vaccine Completed 01/18/2024, , 02/13/2022, Additional history exists Procedures Procedure Name Priority Date/Time Associated Diagnosis [...] HEPATITIS C ANTIBODY Routine 05/24/2023 7:29 AM LUBE MAN Laboratory examination ordered as part of a [...] Edited Result - Final * Thyroid Function Douglas (07/03/2024 7:59 AM CDT) TSH 1.89 0.40 - 4.50 mIU/L [facility] Blood 07/03/2024 7:59 AM CDT 07/03/2024 8:00 AM CDT Narrative [facility] - 07/03/2024 5:15 PM CDT FASTING:YES FASTING: YES us Dinora Burkett NP LAB BLOOD ORDERABLES Fin al Result [facility] [address] [place] [address] * CBC with auto differential (07/03/2024 7:59 AM CDT) WBC 5.8 3.8 - 10.8 Thousand/u L [facility] RBC, POC 4.52 3.80 - 5.10 Million/uL [facility] Hgb 14.0 11.7 - 15.5 g/dL [facility] Hct 42.6 35.0 - 45.0 % [facility] MCV 94.2 80.0 - 100.0 fL [facility] MCH 31.0 27.0 - 33.0 pg [facility] MCHC 32.9 32.0 - 36.0 g/dL [facility] Comment: For adults, a slight decrease in the calculated MCHC value (in the range of 30 to 32 g/dL) is most likely not clinically significant; however, it should be interpreted with caution in correlation with other red cell parameters and the patient's clinical condition. Rdw 13.1 11.0 - 15.0 % [facility] Platelets 225 140 - 400 Thousand/u L [facility] MPV 10.5 7.5 - 12.5 fL [facility] Neutrophils, abs 3,126 1,500 - 7,800 cells/uL [facility] Lymphocytes, abs 1,786 850 - 3,900 cells/uL [facility] Monocyte abs 667 200 - 950 cells/uL [facility] Eosinophils, abs 180 15 - 500 cells/uL [facility] Basophils, abs 41 0 - 200 cells/uL [facility] Neutrophils 53.9 % [facility] Lymphocyte pct 30.8 % [facility] Monocytes 11.5 % [facility] Eosinophils 3.1 % [facility] Basophils 0.7 % [facility] Blood 07/03/2024 7:59 AM CDT 07/03/2024 8:00 AM CDT Narrative [facility] - 07/03/2024 5:15 PM CDT FASTING:YES FASTING: YES Dinora Burkett NP LAB BLOOD ORDERABLES Fin al Result [facility] [address] [place] [address] * Lipid panel (07/03/2024 7:59 AM CDT) Cholesterol 138 <200 mg/dL [facility] [place] HDL 62 > OR = 50 mg/dL [facility] Triglycerides 104 <150 mg/dL [facility] [place] LDL 57 mg/dL (calc) [facility] Comment: Reference range: <100 Desirable range <100 mg/dL for primary prevention; <70 mg/dL for patients with CHD or diabetic patients with > or = 2 CHD risk factors. LDL-C is now calculated using the Chaz calculation, which is a validated novel method providing better accuracy than the Friedewald equation in the estimation of LDL-C. Alverto BORJAS et al. MILAD. 2013;310(19): 9349-7953 (http://education.[employer]/faq/YMF883) Chol/HDL ratio 2.2 <5.0 (calc) [facility] [place] Non-HDL, (LDL+VLDL) 76 <130 mg/dL (calc) [facility] [place] Comment: For patients with diabetes plus 1 major ASCVD risk factor, treating to a non-HDL-C goal of <100 mg/dL (LDL-C of <70 mg/dL) is considered a therapeutic option. Blood 07/03/2024 7:59 AM CDT 07/03/2024 8:00 AM CDT Narrative [facility] - 07/03/2024 5:15 PM CDT FASTING:YES FASTING: YES Dinora Burkett NP LAB BLOOD ORDERABLES Fin al Result [facility] [address] [place] [address] * Comprehensive metabolic panel (07/03/2024 7:59 AM CDT) Pathologist [facility] Glucose 88 65 - 99 mg/dL [facility] [place] Comment: Fasting reference interval BUN 14 7 - 25 mg/dL [facility] [place] Creatinine 0.87 0.50 - 1.05 mg/dL [facility] [place] eGFR 73 > OR = 60 mL/min/1.7 3m2 [facility] [place] BUN/creat ratio SEE NOTE: 6 - 22 (calc) [facility] [place] Comment: Not Reported: BUN and Creatinine are within reference range. Sodium 142 135 - 146 mmol/L [facility] [place] Potassium, pl 4.1 3.5 - 5.3 mmol/L [facility] [place] Chloride 105 98 - 110 mmol/L [facility] [place] CO2 29 20 - 32 mmol/L [facility] [place] Calcium 9.5 8.6 - 10.4 mg/dL [facility] [place] Protein, sr 7.0 6.1 - 8.1 g/dL Carl [facility] [place] Albumin 4.5 3.6 - 5.1 g/dL Carl [facility] [place] GLOBULIN 2.5 1.9 - 3.7 g/dL (calc) [facility] [place] Alb/glob ratio 1.8 1.0 - 2.5 (calc) [facility] [place] Bilirubin, total 0.8 0.2 - 1.2 mg/dL [facility] [place] Alk phos 55 37 - 153 U/L [facility] [place] AST 19 10 - 35 U/L [facility] [place] ALT (SGPT) 15 6 - 29 U/L [facility] [place] Blood 07/03/2024 7:59 AM CDT 07/03/2024 8:00 AM CDT Narrative [facility] - 07/03/2024 5:15 PM CDT FASTING:YES FASTING: YES Dinora Burkett NP LAB BLOOD ORDERABLES Fin al Result [facility] [address] [place] [address] * Pap and HPV, reflex to HPV Genotypes (08/04/2023 10:33 AM CDT) CLINICAL INFORMATION: [facility] Comment:SCREENING LMP [facility] Comment:POSTMENO Previous Pap [facility] Comment:NONE GIVEN Prev. Bx [facility] Comment:NONE GIVEN SOURCE: [facility] Comment:Cervix, Endocervix Pap, specimen adequacy [facility] Comment:SATISFACTORY FOR YOLI LUATION HPV interp [facility] Comment: Cytology Results: Negative for intraepithelial lesion or malignancy. Atrophic pattern; predominantly parabasal cells COMMENTS [facility] Comment: This Pap test has been evaluated with computer assisted technology. Fisheries Specialist Fritz [facility] Comment: AMW, CT(ASCP) CT screening location: [place] [address] [address] [address] Review fleet dispatch manager [facility] Comment: MMW, CT(ASCP) CT screening location: [place] [address] [address] [address] Comment [facility] Comment: EXPLANATORY NOTE: The Pap is a [...] High Risk E6/E7 Not Detected NOT DETECTED [facility] Comment: Not Detected High Risk HPV types (16,18,31,33,35,39,45,51,52, 56,58,59,66,68) were not detected. Other HPV types which cause anogenital lesions may be present. The significance of the other types of HPV in malignant processes has not been established. Methodology: Real Time PCR Thin prep 08/04/2023 10:3 3 AM CDT 08/05/2023 1:25 AM CDT Melodie Sanchez NP LAB CYTOLOGY ORDERABLES Final Re sult [place] [address] [address] [phone] [place] [address] [facility] [place] [address] * HM MAMMOGRAPHY (07/22/2023) Mammography Normal Historical Provider HEALTH MAINTENANCE Final Result * Hepatitis C antibody Blood (05/24/2023 7:29 AM LUBE MAN) Hep C Ab NON-REACTI VE NON-REACT LOUIS [facility] Comment: HCV antibody was non-reactive. There is no laboratory evidence of HCV infection. In most cases, no further action is required. However, if recent HCV exposure is suspected, a test for HCV RNA (test code 18134) is suggested. For additional information please refer to http://education.[employer]/faq/SHI13r2 (This link is being provided for informational/ educational purposes only.) Blood 05/24/2023 7:29 AM LUBE MAN 05/24/2023 7:29 AM LUBE MAN Narrative [facility] - 05/26/2023 2:05 AM LUBE MAN FASTING:YES FASTING: YES Jaylin King MD LAB MICROBIOLOGY - GEN ERAL ORDERABLES Final Result [facility] [address] [place] [address] * Dexa Axial Skeleton Bone Density 1 or 2 Site (11/26/2022 8:40 AM CDT) Anatomical Region Laterality Modality Body N/A Mammography 11/26/2022 4:53 PM CDT Narrative 11/26/2022 4:54 PM CDT EXAM DESCRIPTION: DEXA AXIAL SKELETON BONE DENSITY 1 OR MORE SITES REASON FOR STUDY: 67 y/o year old F with given history of: Post menopausal status. Prior fracture Social Science Analyst/Model: [employer] A (S/N [id number]) CLINICAL INFORMATION: Current height: 63 inches Maximum [...] Sadie Garduno M.D. TW: TW Report ID: [id number] Reading Location: [place] [address] Procedure Note Sadie Garduno MD - 11/26/2022 EXAM DESCRIPTION: DEXA AXIAL SKELETON BONE DENSITY 1 OR MORE SITES REASON FOR STUDY: 67 y/o year old F with given history of: Post menopausal status. Prior fracture Social Science Analyst/Model: [employer] A (S/N [id number]) CLINICAL INFORMATION: Current height: 63 inches Maximum [...] Sadie Garduno M.D. TW: TW Report ID: [id number] Reading Location: [place] [address] Kingsley Denise MD IMG DXA PROCEDURES Final Resu lt * Colonoscopy (05/12/2022) Anatomical Region Laterality Modality Other Historical Provider ENDOSCOPY PROCEDURES Irene aguilar Result from Last 3 Months or Most Recently Relevant to Health Maintenance Insurance MEDICARE [facility] CLAIMS OFFICE [facility] MEDICARE SUPPLEMENT [employer] MEDICARE SUPPLEMENT MEDICARE [employer] CLAIMS OFFICE Care Teams Director Of Revenue Cycle Management Relationship Specialty Start Date End Date Xiomara Call NP [address] [facility] [address] [place] [address] PCP - General Family Medicine 07/14/24 Vish Corona MD [address] [facility] [address] [place] [address] Consulting Physician Cardiology 07/14/24 Kavita Ramirez MD [address] [place] [address] Consulting Physician Obstetrics and Gynecology 07/14/24
--- OUTSIDE RECORDS SUMMARY | 2024-08-22 08:12 | XMS_ITS | Data Portability ---
Author Organization [facility] JOHNJuve Address [address] [place] [address] Care Team Providers Care Milk Bottler Name Role Phone ABHISHEKFAINAA Digital Watch Assembler Assessment No assessment recorded. Plan of Treatment Reminders Order Date Submit Date Provider Last Modified By Organization Details Last Modified Time Details Appointments None recorded. Lab vaginal pathogens panel, GIAN+probe , vaginal fluid 2021 022 [facility], [address] [facility], [address], [place], [address], 2 05:06:43 urinalysi s, dipstick 2020 021 opal In-Office Order, Internal Use Only DO Not Attach Compendium DO Not Attach Compendium, Do Not Delete/merge, [id number] 10:47:16 pap, IG + HPV, cervical 2020 021 [facility], [address] [facility], [address], [place], [address], 16:12:00 pap, IG + HPV, cervical - please use Z11.51 in addition to code above for HPV testing. 2016 017 [facility], 2022 Kai Landrum, [address], [address], 7 14:10:37 urinalysi s, dipstick 2016 Laurie joseph In-Office Order, Internal Use Only DO Not Attach Compendium DO Not Attach Compendium, Do Not Delete/merge, [id number] 17:09:44 Referral general surgeon referral 2016 017 [email or web address] Not available 17:43:36 Procedures None recorded. Surgeries None recorded. Imaging MAMMO, screening , bilateral 2020 021 [place] (Imaging), [address], [place], [address], 14:55:30 DEXA 2020 [facility] (Imaging), [address], [place], [address], 14:30:47 Medication Orders Imveclifford Willstenan ce Pack 4 mcg vaginal insert 2020 [facility] #[id number], [address] [place], [place], [id number], 2 11:51:15 Calcium with Vitamin D 600 mg-10 mcg (400 unit) tablet 2020 021 [facility] #[id number], [address] [place], [place], [id number], 2 11:53:17 multivita min tablet 2020 021 [facility] #53240, [address] [place], [place], [id number], 2 11:53:14 raloxifen e 60 mg tablet 2020 021 [facility] #56436, [address] [place], [place], [id number], 2 12:18:19 multivita min tablet 2016 017 [facility] #63863, [address] , [place], [place], [id number], 2 11:53:14 Calcium with Vitamin D 600 mg-10 mcg (400 unit) tablet 2016 017 [facility] #93162, [address], [place], [place], [id number], 11:53:17 Patient TargetsNo targets recorded. Patient Instructions Encounter Date Encounter Id Patient Instructions Last Modified By Organization Details Last Modified Time 09/23/2016 [id number] inguinal hernia: care instructions [id number] Not available 09/23/2016 17:36:11 10/29/2020 [id number] atrophic vaginitis: care instructions opal Not available 10/29/2020 10:49:09 mammogram: about this test [email or web address] Not available 10/29/2020 10:47:16 mammogram screening patient instructions [email or web address] Not available 10/29/2020 10:47:16 Reason for Referral General Surgeon Referral for Inguinal hernia Referring Physician: Ace Mcnulty LEARNING AND DEVELOPMENT OFFICER, Encounter Date: 09/23/2016 Results Created Date Observation Date Name Description Value Unit Range Abnormal Flag Note LastModifiedBy Organization Detail LastModifiedTime 09/24/19 17 09/23/2016 urina lysis , dipst ick Leukocytes Negati ve Not Available In-Office Order Internal Use Only DO Not Attach Compendium DO Not Attach Compendium, Do Not Delete/merge, [id number] 09/23/2016 16:29:55 09/24/19 17 09/23/2016 urina lysis , dipst ick Nitrite negati ve Not Available In-Office Order Internal Use Only DO Not Attach Compendium DO Not Attach Compendium, Do Not Delete/merge, [id number] 09/23/2016 16:29:55 09/24/19 17 09/23/2016 urina lysis , dipst ick Urobilinogen 1 Not Available In-Of fice Order Internal Use Only DO Not Attach Compendium DO Not Attach Compendium, Do Not Delete/merge, 09/23/2016 16:29:55 09/24/19 17 09/23/2016 urina lysis , dipst ick Protein Trace Not Available In-Office Order Internal Use Only DO Not Attach Compendium DO Not Attach Compendium, Do Not Delete/merge, 09/23/2016 16:29:55 09/24/19 17 09/23/2016 urina lysis , dipst ick pH 5.5 Not Available In-Office Order Internal Use Only DO Not Attach Compendium DO Not Attach Compendium, Do Not Delete/merge, 09/23/2016 16:29:55 09/24/19 17 09/23/2016 urina lysis , dipst ick Blood Non-He molyze d: Trace Not Available In-Office Order Internal Use Only DO Not Attach Compendium DO Not Attach Compendium, Do Not Delete/merge, 09/23/2016 16:29:55 09/24/19 17 09/23/2016 urina lysis , dipst ick Specific [place] 1.025 Not Available In-Off ice Order Internal Use Only DO Not Attach Compendium DO Not Attach Compendium, Do Not Delete/merge, 09/23/2016 16:29:55 09/24/19 17 09/23/2016 urina lysis , dipst ick Ketone Trace Not Available In-Office Order Internal Use Only DO Not Attach Compendium DO Not Attach Compendium, Do Not Delete/merge, 09/23/2016 16:29:55 09/24/19 17 09/23/2016 urina lysis , dipst ick Bilirubin Negati ve Not Available In-Office Order Internal Use Only DO Not Attach Compendium DO Not Attach Compendium, Do Not Delete/merge, 09/23/2016 16:29:55 09/24/19 17 09/23/2016 urina lysis , dipst ick Glucose Negati ve Not Available In-Office Order Internal Use Only DO Not Attach Compendium DO Not Attach Compendium, Do Not Delete/merge, 09/23/2016 16:29:55 09/25/19 17 09/28/2016 pap, IG + HPV, cervi gisela diagnosis: COMMCHRISTINE T NEGAT [place] FOR INTRA EPITH ELIAL LESIO N AND MALYUSRA BEGUM . CELLU LAR CHARLES ES ASSOC IATED WITH ATROP HY ARE PRESE NT. Not Available [facility] ([facility]) [address] [place], [address], 09/28/2016 14:10:37 09/25/19 17 09/28/2016 pap, IG + HPV, cervi gisela specimen adequacy: COMMCHRISTINE T SATIS FACTO RY FOR EVALU ATION . ENDOC ERVIC AL AND/O R SQUAM OUS METAP LASTI C CELLS (ENDO CERVI GISELA COMPO NENT) ARE PRESE NT. Not Available [facility] ([facility]) [address] [place], [address], 09/28/2016 14:10:37 09/25/19 17 09/28/2016 pap, IG + HPV, cervi gisela clinician provided ICD10: IRMA Craven Z20.2 Z01.4 19 Z11.5 1 Not Available [facility] ([facility]) [address] [place], [address], 09/28/2016 14:10:37 09/25/19 17 09/28/2016 pap, IG + HPV, cervi gisela performed by: IRMA T KELLIE BOYLE , CYTOT ALTON Craven (ASCP ) Not Available [facility] ([facility]) [address] [place], [address], 09/28/2016 14:10:37 09/25/19 17 09/28/2016 pap, IG + HPV, cervi gisela . . Not Available [facility] ([facility]) [address] [place], [address], 09/28/2016 14:10:37 09/25/19 17 09/28/2016 pap, IG + HPV, cervi gisela note: COMMCHRISTINE T THE PAP SMEAR IS A SCREE OLIVE TEST [place] TO AID IN THE DETEC TION OF ARASELI LIGNA NT AND MALIG NANT CONDI TIONS OF THE UTERI NE CERVI X. IT IS NOT A DIAGN OSTIC PROCE DURE AND SHOUL D NOT BE USED THE SOLE MEANS OF DETEC TING CERVI GISELA CANCE R. BOTH FALSE -POSI TIVE AND FALSE -NEGA TIVE REPOR TS DO OCCUR . Not Available [facility] ([facility]) [address] [place], [address], 09/28/2016 14:10:37 09/25/19 17 09/28/2016 pap, IG + HPV, cervi gisela test methodology: IRMA Craven THIS LIQUI D BASED THINP REP(R ) PAP TEST WAS SCREE YONG WITH THE USE OF AN IMAGE GUIDE Henrik Yusuf. Not Available [facility] ([facility]) [address] [place], [address], 09/28/2016 14:10:37 09/25/19 17 09/28/2016 pap, IG + HPV, cervi gisela HPV aptima NEGATI VE negati ve THIS TEST DETEC TS FOURT EEN HIGH- RISK HPV TYPES (16/1 8/31/ 33/35 /39/4 5/ 51/52 /56/5 8/59/ 66/68 ) WITHO UT DIFFE RENTI ATION . Not Available [facility] ([facility]) [address] [place], [address], 09/28/2016 14:10:37 10/30/19 21 11/01/2020 IGP, APTIM A HPV diagnosis: Irma craven UNSAT ISFAC TORY FOR EVALU ATION . Not Available [facility] ([facility]) [address] [place], [address], 11/01/2020 16:11:59 10/30/19 21 11/01/2020 IGP, APTIM A HPV recommendati on: Irma craven Sugge st follo w up as clini richie appro priat e. Not Available [facility] ([facility]) [address] [place], [address], 11/01/2020 16:11:59 10/30/19 21 11/01/2020 IGP, APTIM A HPV specimen adequacy: Irma craven Speci men proce ssed and exami yong but unsat isfac tory for evalu ation of epith elial abnor malit y becau se of insuf ficie nt cellu larit y. Not Available [facility] ([facility]) [address] [place], [address], 11/01/2020 16:11:59 10/30/19 21 11/01/2020 IGP, APTIM A HPV clinician provided ICD10: Irma craven Z01.4 19 Z11.5 1 Not Available [facility] ([facility]) [address] [place], [address], 11/01/2020 16:11:59 10/30/19 21 11/01/2020 IGP, APTIM A HPV performed by: Irma root, Cytot echno logis t (ASCP ) Not Available [facility] ([facility]) [address] [place], [address], 11/01/2020 16:11:59 10/30/19 21 11/01/2020 IGP, APTIM A HPV QC reviewed by: Irma olson, Super visor y Cytot echno logis t (ASCP ) Not Available [facility] ([facility]) [address] [place], [address], 11/01/2020 16:11:59 10/30/19 21 11/01/2020 IGP, APTIM A HPV . . Not Available [facility] ([facility]) [address] [place], [address], 11/01/2020 16:11:59 10/30/19 21 11/01/2020 IGP, APTIM A HPV note: Irma craven The Pap smear is a scree olive test desig yong to aid in the detec tion of araseli ligna nt and malig nant condi tions of the uteri ne cervi x. It is not a diagn ostic proce dure and shoul d not be used as the sole means of detec ting cervi gisela cance r. Both false -posi tive and false -nega tive repor ts do occur . Not Available [facility] ([facility]) [address] [facility], [place], [address], 11/01/2020 16:11:59 10/30/19 21 11/01/2020 IGP, APTIM A HPV test methodology: Commen t This liqui d based ThinP rep(R ) pap test was [place] with the use of an image guide henrik yusuf. Not Available [facility] ([facility]) [address] [facility], [place], [address], 11/01/2020 16:11:59 10/30/19 21 11/01/2020 IGP, APTIM A HPV HPV aptima Negati ve negati ve This nucle ic acid ampli ficat ion test detec ts fourt een high- risk HPV types (16,1 8,31, 33,35 ,39,4 5,51, 52,56 ,58,5 9,66, 68) witho ut diffe renti ation . Not Available [facility] ([facility]) [address] [facility], [place], [address], 11/01/2020 16:11:59 10/30/1910/29/2020 urina lysis , dipst ick Leukocytes Negati ve Not Available In-Office Order Internal Use Only DO Not Attach Compendium DO Not Attach Compendium, Do Not Delete/merge, [id number] 10/29/2020 10:14:10/30/19 21 10/29/2020 urina lysis , dipst ick Nitrite negati ve Not Available In-Office Order Internal Use Only DO Not Attach Compendium DO Not Attach Compendium, Do Not Delete/merge, [id number] 10/29/2020 10:14:10/30/19 21 10/29/2020 urina lysis , dipst ick Urobilinogen .2 Not Available In-Of fice Order Internal Use Only DO Not Attach Compendium DO Not Attach Compendium, Do Not Delete/merge, 10/29/2020 10:14:10/30/19 21 10/29/2020 urina lysis , dipst ick Protein Negati ve Not Available In-Office Order Internal Use Only DO Not Attach Compendium DO Not Attach Compendium, Do Not Delete/merge, 10/29/2020 10:14:10/30/19 21 10/29/2020 urina lysis , dipst ick pH 5.5 Not Available In-Office Order Internal Use Only DO Not Attach Compendium DO Not Attach Compendium, Do Not Delete/merge, 10/29/2020 10:14:10/30/19 21 10/29/2020 urina lysis , dipst ick Blood Negati ve Not Available In-Office Order Internal Use Only DO Not Attach Compendium DO Not Attach Compendium, Do Not Delete/merge, 10/29/2020 10:14:10/30/19 21 10/29/2020 urina lysis , dipst ick Specific [place] 1.030 Not Available In-Off ice Order Internal Use Only DO Not Attach Compendium DO Not Attach Compendium, Do Not Delete/merge, 10/29/2020 10:14:10/30/19 21 10/29/2020 urina lysis , dipst ick Ketone Negati ve Not Available In-Office Order Internal Use Only DO Not Attach Compendium DO Not Attach Compendium, Do Not Delete/merge, 10/29/2020 10:14:10/30/19 21 10/29/2020 urina lysis , dipst ick Bilirubin Negati ve Not Available In-Office Order Internal Use Only DO Not Attach Compendium DO Not Attach Compendium, Do Not Delete/merge, 10/29/2020 10:14:10/30/19 21 10/29/2020 urina lysis , dipst ick Glucose Negati ve Not Available In-Office Order Internal Use Only DO Not Attach Compendium DO Not Attach Compendium, Do Not Delete/merge, [id number] 10/29/2020 10:14:09 10/30/19 21 10/29/2020 urina lysis , dipst ick Appearance Slight ly Cloudy Not Available In-Office Order Internal Use Only DO Not Attach Compendium DO Not Attach Compendium, Do Not Delete/merge, [id number] 10/29/2020 10:14:09 10/30/19 21 10/29/2020 urina lysis , dipst ick Color Yellow Not Available In-Office Order Internal Use Only DO Not Attach Compendium DO Not Attach Compendium, Do Not Delete/merge, [id number] 10/29/2020 10:14:09 02/06/20 22 02/06/2022 NUSWA B VAGIN ITIS PLUS (VG+) atopobium vaginae Low - 0 score Not Available [facility] ([facility]) [address] [place] [address], [address], 02/09/2022 05:06:43 02/06/20 22 02/06/2022 NUSWA B VAGIN ITIS PLUS (VG+) bvab 2 Low - 0 score Not Available [facility] ([facility]) [address] [place], [address], 02/09/2022 05:06:43 02/06/20 22 02/06/2022 NUSWA B VAGIN ITIS PLUS (VG+) megasphaera 1 Low - 0 score Calcu late total score by ibis g the 3 indiv idual bacte rial vagin osis (BV) marke r score s toget her. Total score is inter prete d as follo ws: Total score 0-1: Indic ates the absen ce of BV. Total score 2: Indet ermin ate for BV. Addit ional clini gisela data shoul d be evalu ated to estab jeancarlos a diagn osis. Total score 3-6: Indic ates the prese nce of BV. This test was devel oped and its perfo rmanc e lane cteri stics deter mined by [facility]. It has not been clear ed or appro thien by the Food and Drug Admin istra tion. Not Available [facility] ([facility]) [address] [facility], [place], [address], 02/09/2022 05:06:43 02/06/2002/07/2022 NUSWA B VAGIN ITIS PLUS (VG+) little albicans, GIAN Negati ve negati ve Not Available [facility] ([facility]) [address] [place], [address], 02/09/2022 05:06:43 02/06/2002/07/2022 NUSWA B VAGIN ITIS PLUS (VG+) little glabrata, GIAN Negati ve negati ve Not Available [facility] ([facility]) [address] [place], [address], 02/09/2022 05:06:43 02/06/2002/09/2022 NUSWA B VAGIN ITIS PLUS (VG+) trich vag by GIAN Negati ve negati ve Not Available [facility] ([facility]) [address] [place], [address], 02/09/2022 05:06:43 02/06/2002/09/2022 NUSWA B VAGIN ITIS PLUS (VG+) chlamydia trachomatis, GIAN Negati ve negati ve Not Available [facility] ([facility]) [address] [place], [address], 02/09/2022 05:06:43 02/06/2002/09/2022 NUSWA B VAGIN ITIS PLUS (VG+) neisseria gonorrhoeae, GIAN Negati ve negati ve Not Available [facility] ([facility]) [address] [place], [address], 02/09/2022 05:06:43 Result Notes None recorded. Problems Name Problem SNOMED Code Status Onset Date Resolution Date Notes Provider Name and Address Organization Details Recorded Time Menopause Active 2020 Ace teague, [facility] 1 12:04:54 Gastroesophage al reflux disease 273066991 Active 2020 Ace teague [facility] 1 12:05:02 Hyperlipidemia 96196274 Active 2020 Ace teague [facility] 1 12:05:12 Problem Notes None recorded. Procedures Surgical History Date Name Laterality Status Provider Name and Address Organization Details Recorded Time 2 Date of Last Pap Smear completed Carly Wakefield MA [facility] 02/05/2022 11:53:38 7 Most Recent Mammogram completed Cierra Jordan MA [facility] 09/23/2016 16:18:17 Imaging Results None recorded. Procedure Notes None recorded. Medical Equipment None Reported. Allergies No known drug allergies Medications Name Sig Start Date Stop Date Status Note LastModified by Organization Details LastModified Time Prescriptio n - Prior Authorizati on Request INSET ONE INSERT VAGINALLY TWICE A WEEK 02/05 completed Not Available Not Available Not Available multivitami n tablet Take 1 tablet every day by oral route. 02/05 completed Not Available Not Available Not Available ondansetron HCl 4 mg tablet 02/05 completed Not Available Not Available Not Available rizatriptan 10 mg tablet active Not Available Not Available Not Available topiramate 25 mg tablet active Not Available Not Available Not Available aspirin 81 mg tablet,debra yed release active Not Available Not Available Not Available propranolol 10 mg tablet 02/05 completed Not Available Not Available Not Available raloxifene 60 mg tablet TAKE 1 TABLET DAILY 02/05 completed Not Available Not Available Not Available diclofenac sodium 75 mg tablet,debra yed release active Not Available Not Available Not Available ondansetron 4 mg disintegrat ing tablet active Not Available Not Available N ot Available escitalopra m 10 mg tablet TAKE ONE-HALF (1/2) TABLET (5 MG) DAILY 02/05 completed Not Available Not Available Not Available rosuvastati n 10 mg tablet 02/05 completed Not Available Not Available Not Available rosuvastati n 40 mg tablet active Not Available Not Available Not Available Calcium with Vitamin D 600 mg-10 mcg (400 unit) tablet Take 1 tablet twice a day by oral route. 02/05 completed Not Available Not Available Not Available Prepopik 10 mg-3.5 gram-12 gram oral powder packet 02/05 completed Not Available Not Available Not Available Xiidra 5 % eye drops in a dropperette 02/05 completed Not Available Not Available Not Available Imvexxy Maintenance Pack 4 mcg vaginal insert INSET ONE INSERT VAGINALLY TWICE A WEEK 02/05 completed Not Available Not Available Not Available Vitals Date Recorded Body height Body mass index (BMI) Body weight Systolic blood pressure Diastolic blood pressure Provider Name and Address Organization Details Last Updated DateTime 10/29/2020 161.29 cm 24.9 kg/m2 57965.71 g 122 mm[Hg] 80 mm[Hg] Xiomara Lama MA [facility] 10:08:31 Date Recorded Body weight Systolic blood pressure Diastolic blood pressure Provider Name and Address Organization Details Last Updated DateTime 02/05/2022 69465.79 g 132 mm[Hg] 84 mm[Hg] Carly Wakefield MA [facility] 02/05/2022 11:50:34 Date Recorded Body height Body weight Body mass index (BMI) Systolic blood pressure Diastolic blood pressure Provider Name and Address Organization Details Last Updated DateTime 09/23/2016 161.29 cm 58599.63 g 26.7 kg/m2 130 mm[Hg] 70 mm[Hg] Cierra Jordan MA [facility] 7 16:14:40 Social History Question Answer Notes LastModified by Organizat ion Details LastModified Time Tobacco Smoking Status Never Smoker Cierra Jordan MA null, [facility] 09/23/2016 16:22:36 Do You Have An Advance Directive? No Information not available 09/23/2016 What Is Your Level Of Alcohol Consumption? Occasional Information not available 09/23/2016 Is Blood Transfusion Acceptable In An Emergency? Yes Information not available 09/23/2016 What Is Your Level Of Caffeine Consumption? Moderate Information not available 09/23/2016 How Much Tobacco Do You Chew? None Information not available 09/23/2016 Are You Currently Employed? Yes Information not available 09/23/2016 What Type Of Diet Are You Following? 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 With Others Information not available 09/23/2016 What Was The Date Of Your Most Recent Tobacco Screening? 02/05/2022 [email or web address] Information not available 02/05/2022 How Many Children Do You Have? 0 Information not available 09/23/2016 Performs Monthly Self-breast Exam? No Information no t available 09/23/2016 Do You Use Protection During Sex? No Information not available 09/23/2016 What Is Your Relationship Status? Information not available 09/23/2016 Seat Belts Used Routinely Yes Information not available 09/23/2016 Are You Sexually Active? Yes Information not available 09/23/2016 How Much Tobacco Do You Smoke? No Information not available 09/23/2016 General Stress Level Medium Information not available 09/23/2016 Do You Use Sunscreen Routinely? Yes Information not available 09/23/2016 Sex: Unknown Functional Status Question Answer Note LastModified by Organization D etails LastModified Time What is your exercise level? Heavy Information not available 09/23/2016 Mental Status None recorded. Family History Relationship Description Onset Age of this Age Resolved Age Notes LastModified by Organization Details LastModified Time Father Cerebrovascu lar accident 63 63 Not available 16:19:25 Father Diabetes mellitus 50 63 Not available 2016 16:20:43 Mother Myocardial infarction 60 60 Not available 09/23 16:19:53 Maternal Grandmother Cerebrovascu lar accident 60 Not available 16:20:18 Sister Disorder of thyroid gland 31 Not available 2016 16:21:24 Sister Malignant tumor of breast 65 Not available 2016 16:22:01 Sister Migraine Not available 09/23/2016 16:22:24 Medical History Condition Response Other N High Blood Pressure N Breast Cancer N Thyroid Problems N Kidney or Bladder Problems N Lung Disease N Depression N Blood Clots N GI Problems N Acne Y Eating Disorder N Breast Problem N Anemia N Anesthesia Complications N Headaches/Migraines N Anxiety Disorder N Ovarian Cancer N Diabetes N Muscle, Joint, or Bone Problems N Blood Transfusions N Seizures/Epilepsy N Infertility N Polyps N Acid Reflux (GERD) Y Cancer N Abuse/Domestic Violence N Asthma N Endometriosis N High Cholesterol Y Hepatitis N Liver Disease N Heart Disease N Pre-Eclampsia N Osteoporosis N Gynecological History Statement/Question Response Abnormal Pap N Date of LMP On BCP's at Conception? N STIs/STDs N HPV Vaccine N Most Recent Mammogram 07/08/2016 Age at Menarche 15 Current Control Method Menopause If Post Menopausal, Age at Menopause 56 Sexually Active? Y Menses Monthly N Date of Last Pap Smear 02/05/2022 Sexual Problems? N LMP Obstetrics History GPAL:G 0 P 0 0 0 0 Type Value Living 0 Total 0 Immunizations Vaccine Type Date Status Note Provider Nam e and Address Organization Details Recorded Time COVID-19, mRNA, LNP-S, PF, 30 mcg/0.3 mL dose 03/17/2021 completed MANOLO BURNS MD Attn: [address] [place], [address], [place] [facility] 02/05/2022 12:01:01 Influenza, MDCK, quadrivalent, PF 04/25/2019 completed MANOLO BURNS MD Attn: [address] [place], [address], [place] [facility] 02/05/2022 12:01:01 COVID-19, mRNA, LNP-S, PF, 30 mcg/0.3 mL dose, minnie-sucrose 10/29/2021 completed MANOLO BURNS MD Attn: [address] [place], [address], [place] [facility] 02/05/2022 12:01:01 Influenza, split virus, quadrivalent, PF 03/24/2021 completed MANOLO BURNS MD Attn: [address] [place], [address], [place] [facility] 02/05/2022 12:01:01 Tdap 06/24/2020 completed MANOLO BURNS MD Attn: [address] [facility], [place], [place], [address] [place] [address], [place] [facility] 02/05/2022 12:01:01 COVID-19, mRNA, LNP-S, PF, 30 mcg/0.3 mL dose 08/04/2020 completed MANOLO BURNS MD Attn: [address] [place], [place], [address] [place] [address], [place] [facility] 02/05/2022 12:01:01 COVID-19, mRNA, LNP-S, PF, 30 mcg/0.3 mL dose 07/09/2020 completed MANOLO BURNS MD Attn: [address] [place], [place], [address] [place] [address], [place] [facility] 02/05/2022 12:01:01 Influenza, split virus, quadrivalent, PF 01/02/2020 completed MANOLO BURNS MD Attn: [address] [place], [place], [address] [place] [address], [place] [facility] 02/05/2022 12:01:01 Past Encounters Encounter ID Performer Location Encounter Start Date Encounter Closed Date Diagnosis/Indication Diagnosis SNOMED-CT Code Diagnosis ICD10 Code Diagnosis Note [id number] [facility]NNET[facility] (LEARNING AND DEVELOPMENT OFFICER) [address] [place] [phone] 09/23/2016 15:33:22 09/23/2016 17:43:36 Gynecologic examination [id number] Z01.419 Z11.51 Inguinal hernia [id number] K40.90 [id number] Ace Ashton HC (LEARNING AND DEVELOPMENT OFFICER) [address] [place] [phone] 10/29/2020 09:39:58 11/07/2020 14:48:43 Menopause [id number] N95.1 Gynecologi c examination [id number] Z01.419 Z11.51 Screening mammography 24 112234 Z12.31 Screening for osteoporosis [id number] Z13.820 Atrophic vaginitis 07153 000 N95.2 [id number] MD aDisha CRUM (LEARNING AND DEVELOPMENT OFFICER) [address] [place] [address] 02/05/2022 11:26:14 02/17/2022 15:44:30 Gynecologic examination [id number] Z01.411 - Educated on the importance of Self breast awareness. - Discussed the importance of cervical cancer screenings , Last pap 10/29/2020 - NILM, neg hr-HPV- Discussed the importance of exercise.- Nutrition discussed and the importance of a diet rich in fruits, vegetable, whole grains, and lean proteins.- Advised avoidance of tobacco, alcohol, and drugs. Vaginal irritation 02410 6004 N89.8 no concern for yeast infection on exam, likely vaginal atrophy- Nuswab obtained- Encouraged use of moisturisi ng ointment to provide topical relief Health Concerns Section Related Observation LastModified by Organization Detai ls LastModified Time None Recorded Concern Status LastModified by Organization Details LastModified Time None Recorded Advance Directives Directive N: Payers Encounter Date Sequence Insurance Name Policy Number Policy Olivas Covered Member ID Olivas Member ID Guarantor Name 09/23/2016 1 [place] [id number] 3 Cynthia L Christoff [id number] Cynthia Christoff 10/29/2020 1 [place]) [id number] 3 Cynthia L Christoff [id number] Cynthia Christoff 02/05/2022 1 [place] [id number] 3 Cynthia L Christoff [id number] Cynthia Christoff Notes Date Note Type Note Provider Name and Address Organization Details Recorded Time 7 text/html 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 Post-MenopausalReported bypatient.Menopausal Symptoms:no menopausal symptoms; normal vaginal lubrication Vaginal Bleeding:history of menopause having occurred; no history of post menopausal bleeding Urinary Symptoms:no hematuria; no incontinence; no nocturia; no urinary frequency Vulva:no genital lesion; no vulvar atrophy Vagina:normal vaginal discharge; no vaginal atrophy Breast:no breast lump; no nipple discharge; no breast pain Sexual Complaints:no sexual complaints Psychological Symptoms:no depression; no anxiety 61 yof, G0 here for annual wwe and complaints of abdominal pain Naya Tee MA [facility] [facility] 09/24/2016 12:09:29 1 text/html 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 Post-MenopausalReported bypatient.Menopausal Symptoms:no menopausal symptoms;inadequacy of lubrication of vaginal mucosa Vaginal Bleeding:history of menopause having occurred; no history of post menopausal bleeding Urinary Symptoms:no hematuria; no incontinence; no nocturia; no urinary frequency Vulva:no genital lesion;atrophic vulva Vagina:normal vaginal discharge;atrophic vagina Breast:no breast lump; no nipple discharge; no breast pain Sexual Complaints:no sexual complaints Psychological Symptoms:no depression; no anxiety Preventive Measures:encourage regular mammograms starting age 40; encourage self breast examination; encourage regular exercise; encourage no tobacco use; needs to schedule mammogram; needs to schedule colonoscopy; needs to schedule bone density 65 yof, G0 here for annual wwe complains of vag dryness Ace Mcnulty ho [facility] 10/30/2020 10:21:29 2 text/html Annual GYNReported bypatient.Menstrual cycle:Perimenopausal(pos tmenopausal) Urinary symptoms:No hematuria; No incontinence Vulva:No genital lesion Vagina:Normal vaginal discharge Breast:No breast pain; No breast lump; No nipple discharge Current Contraception:Monogamous relationship; Not sexually active Sexual complaints:No sexual complaints; No pain during intercourse; Normal libido Menopausal Symptoms:No menopausal symptoms;Inadequacy of lubrication of vaginal mucosa Psychological symptoms:No depression; No anxiety Preventive measures:Encourage self breast examination; Encourage regular exercise; Encourage no tobacco useNotes: 66 yo F here for armored car guard examPrimarily complaining of vaginal irritation and discomfort, no discharge, not sexually activePatient has been on Raloxifene for the past 10 years, placed on it by OBGYN for menopausal symptoms, unclear indication, no concern for osteoporosisPatient asking if this can be stopped as she will get onto Medicare next month and it is quite costly.Physically active, plays softball and rides her bike oftenno history of fractures from falls, no prior DEXA scansno history of breast cancer.Had mammogram in [place] recently MANOLO BURNS MD Attn: Accounting,[address] [place], [address], [facility] 02/16/2022 17:46:01 OBGyn Episode No OBEpisode recorded.
--- OUTSIDE RECORDS SUMMARY | 2024-08-22 08:12 | XMS_ITS | Encounter Summary ---
Author Organization [facility] Healthcare Address [address] [place] [address] Care Team Providers Care Data Processing Clerk Name Role Phone Jaylin King MD Primary Care Provider Xiomara Call NP Primary Care Provider [phone] Vish Corona MD Unavailable [phone] Kavita Ramirez MD Unavailable [phone] Encounter Details Date Type Department Care Team (Late st Contact Info) Description 07/03/2024 Results Follow-Up [facility] Medical [facility] Virtual Care [address] [place] [phone] Indira Myers NP [address] [place], [place] [id number] Social History Tobacco Use Types Packs/Day Years Used Date Smoking Tobacco: Never Smokeless Tobacco: Never Alcohol Use Standard Drinks/Week Comments Yes 0 [...] PHQ-2 Answer Date Recorded PHQ-2 Total Score 0 06/05/2024 Comments No Sex and Gender Information Value Date Recorded Sex Assigned at Not on file 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 Gender Identity Female 12/26/2020 9:54 PM CDT Sexual Orientation Straight 12/26/2020 9: 54 PM CDT Occupation Industry 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 Job End Date 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 - [employer] Not on file Not on file Not on file documented as of this encounter Plan of Treatment Not on file documented as of this encounter Visit Diagnoses Not on filedocumented in this encounter Care Teams Data Processing Clerk Relationship Specialty Start Date End Date Jaylin King MD PCP - General Family Medicine 05/28/23 07/13/24 Xiomara Call NP [address] [facility] [address] [place], [place] [id number] PCP - General Family Medicine 07/14/24 Vish Corona MD [address] [facility] [address] [place] [address] Consulting Physician Cardiology 07/14/24 Kavita Ramirez MD [address] [facility] [address] [place] [address] Consulting Physician Obstetrics and Gynecology 07/14/24 documented as of this encounter
--- OUTSIDE RECORDS SUMMARY | 2024-08-22 08:12 | XMS_ITS | CONTINUITY OF CARE DOCUMENT ---
Author Name terrance carlos Address Unknown Organization [facility] Address [address] [facility] [address] [place] [address] Phone [phone] Care Team Providers Care Assembler Piano Name Role Phone terrance carlos Unavailable Unavailable INSURANCE PROVIDERS Payer name Policy type / Coverage type Giovani red democrat ID [facility] [id number] 1 Plan B [employer] PPO Other [id number]
== END 2024-08-22 08:04 | disposition home or self-care (01) ==
PROVIDERS: PCP Nurse Practitioner Family; Visit Provider Nurse Practitioner Family
DX: Z12.31 Encounter for screening mammogram for malignant neoplasm of breast (principal); R92.8 Other abnormal and inconclusive findings on diagnostic imaging of breast
CPT/HCPCS: 77063; 77067

== ENCOUNTER 2024-09-08 10:38 | Outpatient (CLI) | payer MEDICARE, SELFPAY ==
--- NOTE | ~2024-09-08 | MMUS_ITS ---
EXAMINATION: US breast RT complete, MM diagnostic anyi RT w maggi HISTORY: Follow-up right breast asymmetry TECHNIQUE: Additional 3-D tomosynthesis images of the right breast were performed and synthetic 2-D i mages were generated. CAD analysis was submitted and interpreted. High resolution complete right ivette st ultrasound was performed. COMPARISON: Comparison to multiple prior studies sequentially, with oldest reviewed study dated 02/25. BREAST PARENCHYMAL COMPOSITION: Dense: The breasts are heterogeneously dense, which may obscure small masses FINDINGS: MAMMOGRAPHIC FINDINGS: The focal asymmetry in the right breast on MLO view is less dense with spot compression views, compat ible with superimposed fibroglandular tissue. No discrete mass or architectural distortion. There are no suspicious calcifications. ULTRASOUND: Complete US of all 4 quadrants of the right breast/s and retroareolar region was reviewed. Normal het erogeneous echotexture without focal suspicious solid or cystic mass. IMPRESSION: 1. No evidence for malignancy in the right breast. 2. Routine yearly screening mammogram and regular clinical breast examination are recommended. BI-RADS Category 1: Negative Reviewed, dictated and finalized at location A. IMPRESSION: 1. No evidence for malignancy in the right breast. 2. Routine yearly screening mammogram and regular clinical breast examination a re recommended. BI-RADS Category 1: Negative
--- OUTSIDE RECORDS SUMMARY | 2024-09-08 10:41 | XMS_ITS | Encounter Summary ---
Author Organization [facility] Healthcare Address [address] [place] [address] Care Team Providers Care Burlap Man Name Role Phone Xiomara Call NP Primary Care Provider [phone] Vish Corona MD Unavailable [phone] Kavita Ramirez MD Unavailable [phone] Reason for Referral * Diagnostic Imaging (Routine) - Authorized Specialty Diagnoses / Procedures Referred By Contharleen t Referred To Contact Diagnoses Abnormal mammogram of right breast Procedures Diagnostic Mammogram Right W Berry Xiomara Call NP [address] [facility] [address] [place] [address] Phone: tel: fax: [address] [address] Phone: tel: fax: Referral ID Status Reason Start Date Expiration Date V isits Requested Visits Authorized [id number] Authorized 08/23/2024 09/22/2025 1 1 * Diagnostic Imaging (Routine) - Authorized Specialty Diagnoses / Procedures Referred By Contharleen t Referred To Contact Diagnoses Abnormal mammogram of right breast Procedures US Breast Right Limited Xiomara Call NP [address] [place] [address] Phone: tel: fax: [address] [address] Phone: tel: fax: Referral ID Status Reason Start Date Expiration Date V isits Requested Visits Authorized [id number] Authorized 08/23/2024 09/22/2025 1 1 Encounter Details Date Type Department Care Team (Late st Contact Info) Description 08/23/2024 Results Follow-Up [facility] Medical Group Primary Care at [address] [address] Xiomara Call NP [facility] 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 NC MANAGER confirmed that the orders were sent to Fran. NC MANAGER found under referral tab dated 08/23/2024 and informed patient that an Ultra Sound of Right Breast also ordered. Patient needed number for scheduling, NC MANAGER found on [facility] [phone], ext [phone]. NC MANAGER confirmed with patient she visits [facility] for testing. Does message need to be routed? No documented in this encounter Plan of Treatment Scheduled Orders Name Type Priority Associated Diagnoses Orde r Schedule US Breast Right Limited Imaging Schedule Routine, Read Routine (OP Routine) Abnormal mammogram of right breast Expected: 08/23/2024, Expires: 08/23/2025 Diagnostic Mammogram Right W Berry Imaging Schedule Routine, Read Routine (OP Routine) Abnormal mammogram of right breast Expected: 08/23/2024, Expires: 10/23/2025 documented as of this encounter Visit Diagnoses Diagnosis Abnormal mammogram of right breast- Primary documented in this encounter Care Teams Burlap Man Relationship Specialty Start Date End Date Xiomara Call NP [address] [facility] [address] [place] [address] PCP - General Family Medicine 07/14/24 Vish Corona MD [address] [facility] [address] [place] [address] Consulting Physician Cardiology 07/14/24 Kavita Ramirez MD [address] [place] [address] [address] [place] [address] Consulting Physician Obstetrics and Gynecology 07/14/24 documented as of this encounter
--- OUTSIDE RECORDS SUMMARY | 2024-09-08 10:41 | XMS_ITS | Data Portability ---
Author Organization [facility] JOHNJuve Rueda Address [address] [place] [address] Care Team Providers Care Treasury Agent Name Role Phone MANOLO WEISS Hook Puller Assessment No assessment recorded. Plan of Treatment Reminders Order Date Submit Date Provider Last Modified By Organization Details Last Modified Time Details Appointments None recorded. Lab vaginal pathogens panel, GIAN+probe , vaginal fluid 2021 022 OTILIA [facility], [address], [address], [place], [address], 05:06:43 urinalysi s, dipstick 2020 021 opal In-Office Order, Internal Use Only DO Not Attach Compendium DO Not Attach Compendium, Do Not Delete/merge, [id number] 10:47:16 pap, IG + HPV, cervical 2020 021 AUSTIN [facility], [address], [address], [place], [address], 16:12:00 pap, IG + HPV, cervical - please use Z11.51 in addition to code above for HPV testing. 2016 017 OTILIA [facility], 2022 Kai Landrum, [address], [address], 7 14:10:37 urinalysi s, dipstick 2016 Laurie joseph In-Office Order, Internal Use Only DO Not Attach Compendium DO Not Attach Compendium, Do Not Delete/merge, [id number] 17:09:44 Referral general surgeon referral 2016 017 [email or web address] Not available 17:43:36 Procedures None recorded. Surgeries None recorded. Imaging MAMMO, screening , bilateral 2020 021 [facility] (Imaging), [address], [place], [address], 14:55:30 DEXA 2020 [facility] (Imaging), [address], [place], [address], 14:30:47 Medication Orders Theodoraveclifford Willstenan ce Pack 4 mcg vaginal insert 2020 021 [facility] #[id number], [address], [place], [id number], 2 11:51:15 Calcium with Vitamin D 600 mg-10 mcg (400 unit) tablet 2020 021 [facility] #77072, [address], [place], [id number], 2 11:53:17 multivita min tablet 2020 021 [facility] #34021, [address], [place], [id number], 2 11:53:14 raloxifen e 60 mg tablet 2020 021 [facility] #36668, [address], [place], [id number], 2 12:18:19 multivita min tablet 2016 017 [facility] #78072, [address] , [place], [place], [id number], 2 11:53:14 Calcium with Vitamin D 600 mg-10 mcg (400 unit) tablet 2016 017 [facility] #[id number], [address], [place], [place], [id number], 2 11:53:17 Patient TargetsNo targets recorded. Patient Instructions Encounter Date Encounter Id Patient Instructions Last Modified By Organization Details Last Modified Time 09/23/2016 [id number] inguinal hernia: care instructions [email or web address] Not available 09/23/2016 17:36:11 10/29/2020 [id number] atrophic vaginitis: care instructions opal Not available 10/29/2020 10:49:09 mammogram: about this test [email or web address] Not available 10/29/2020 10:47:16 mammogram screening patient instructions [email or web address] Not available 10/29/2020 10:47:16 Reason for Referral General Surgeon Referral for Inguinal hernia Referring Physician: Ace Mcnulty [facility], Encounter Date: 09/23/2016 Results Created Date Observation Date Name Description Value Unit Range Abnormal Flag Note LastModifiedBy Organization Detail LastModifiedTime 09/24/19 17 09/23/2016 urina lysis , dipst ick Leukocytes Negati ve Not Available In-Office Order Internal Use Only DO Not Attach Compendium DO Not Attach Compendium, Do Not Delete/merge, [id number] 09/23/2016 16:29:55 09/24/19 17 09/23/2016 urina lysis , dipst ick Nitrite negati ve Not Available In-Office Order Internal Use Only DO Not Attach Compendium DO Not Attach Compendium, Do Not Delete/merge, [id number] 09/23/2016 16:29:55 09/24/19 17 09/23/2016 urina lysis [...] 09/23/2016 urina lysis , dipst ick Specific [place] 1.025 Not Available In-Off ice Order Internal [...] FOR INTRA EPITH ELIAL LESIO N AND YENNY BEGUM . CELLU LAR CHARLES ES ASSOC IATED WITH ATROP HY ARE PRESE NT. Not Available [facility] ([facility]) [address] [place], [address], 09/28/2016 14:10:37 09/25/19 17 09/28/2016 pap, IG + HPV, cervi gisela specimen adequacy: IRMA T SATIS FACTO RY FOR EVALU ATION . ENDOC ERVIC AL AND/O R SQUAM OUS METAP LASTI C CELLS (ENDO CERVI GISELA COMPO NENT) ARE PRESE NT. Not Available [facility] ([facility]) [address] [place], [address], 09/28/2016 14:10:37 09/25/19 17 09/28/2016 pap, IG + HPV, cervi gisela clinician provided ICD10: IRMA Craven Z20.2 Z01.4 19 Z11.5 1 Not Available [facility] ([facility]) [address] [place], [address], 09/28/2016 14:10:37 09/25/19 17 09/28/2016 pap, IG + HPV, cervi gisela performed by: IRMA BOYLE , CYTOYu Craven (ASCP ) Not Available [facility] ([facility]) [address] [place], [address], 09/28/2016 14:10:37 09/25/19 17 09/28/2016 pap, IG + HPV, cervi gisela . . Not Available [facility] ([facility]) [address] [place], [address], 09/28/2016 14:10:37 09/25/19 17 09/28/2016 pap, IG + HPV, cervi gisela note: IRMA T THE PAP SMEAR IS A SCREE OLIVE TEST TOM CRONIN TO AID IN THE DETEC TION OF ARASELI LIGNA NT AND MALIG NANT CONDI TIONS OF THE UTERI NE CERVI X. IT IS NOT A DIAGN OSTIC PROCE DURE AND SHOUL D NOT BE USED THE SOLE MEANS OF DETEC TING CERVI GISELA CANCE R. BOTH FALSE -POSI TIVE AND FALSE -NEGA TIVE REPOR TS DO OCCUR . Not Available [facility] ([facility]) [address] [place], [address], 09/28/2016 14:10:37 09/25/19 17 09/28/2016 pap, IG + HPV, cervi gisela test methodology: IRMA Craven THIS LIQUI D BASED THINP REP(R ) PAP TEST WAS SCREE YONG WITH THE USE OF AN IMAGE GUIDE Henrik Yusuf. Not Available [facility] ([facility]) [address] [place], [address], 09/28/2016 14:10:37 09/25/19 17 09/28/2016 pap, IG + HPV, cervi gisela HPV aptima NEGATI VE negati ve THIS TEST DETEC TS FOURT EEN HIGH- RISK HPV TYPES (16/1 8/31/ 33/35 /39/4 5/ 51/52 /56/5 8/59/ 66/68 ) WITHO UT DIFFE RENTI ATION . Not Available [facility] ([facility]) [address] [place], [address], 09/28/2016 14:10:37 10/30/19 21 11/01/2020 IGP, APTIM A HPV diagnosis: Irma craven UNSAT ISFAC TORY FOR EVALU ATION . Not Available [facility] ([facility]) [address] [place], [address], 11/01/2020 16:11:59 10/30/19 21 11/01/2020 IGP, APTIM A HPV recommendati on: Irma craven Sugge st follo w up as clini richie appro priat e. Not Available [facility] ([facility]) [address] [place], [address], 11/01/2020 16:11:59 10/30/19 21 11/01/2020 IGP, APTIM A HPV specimen adequacy: Irma craven Speci men proce ssed and exami yong but unsat isfac tory for evalu ation of epith elial abnor malit y becau se of insuf ficie nt cellu larit y. Not Available [facility] ([facility]) [address] [place], [address], 11/01/2020 16:11:59 10/30/19 21 11/01/2020 IGP, APTIM A HPV clinician provided ICD10: Irma craven Z01.4 19 Z11.5 1 Not Available [facility] ([facility]) [address] [place], [address], 11/01/2020 16:11:59 10/30/19 21 11/01/2020 IGP, APTIM A HPV performed by: Irma root, Cytot echno logis t (ASCP ) Not Available [facility] ([facility]) [address] [place], [address], 11/01/2020 16:11:59 10/30/19 21 11/01/2020 IGP, APTIM A HPV QC reviewed by: Irma olson, Ava visor y Cytot echno logis t (ASCP ) Not Available [facility] ([facility]) [address] [place], [address], 11/01/2020 16:11:59 10/30/19 21 11/01/2020 IGP, APTIM A HPV . . Not Available [facility] ([facility]) [address] [place], [address], 11/01/2020 16:11:59 10/30/19 21 11/01/2020 IGP, APTIM [...] occur . Not Available [facility] ([facility]) [address] [facility], [place], [address], 11/01/2020 16:11:59 10/30/19 21 11/01/2020 IGP, APTIM A HPV test methodology: Commen t This liqui d based ThinP rep(R ) pap test was screama yong with the use of an image guide henrik yusuf. Not Available [facility] ([facility]) [address] [facility], [place], [address], 11/01/2020 16:11:59 10/30/19 21 11/01/2020 IGP, APTIM A HPV HPV aptima Negati ve negati ve This nucle ic acid ampli ficat ion test detec ts fourt een high- risk HPV types (16,1 8,31, 33,35 ,39,4 5,51, 52,56 ,58,5 9,66, 68) witho ut diffe renti ation . Not Available [facility] ([facility]) [address] [facility], [place], [address], 11/01/2020 16:11:59 10/30/1910/29/2020 urina lysis , dipst ick Leukocytes Negati ve Not Available In-Office Order Internal Use Only DO Not Attach Compendium DO Not Attach Compendium, Do Not Delete/merge, [id number] 10/29/2020 10:14:10/30/19 21 10/29/2020 urina lysis , dipst ick Nitrite negati ve Not Available In-Office Order Internal Use Only DO Not Attach Compendium DO Not Attach Compendium, Do Not Delete/merge, [id number] 10/29/2020 10:14:10/30/19 21 10/29/2020 urina lysis , [...] 10/29/2020 urina lysis , dipst ick Specific [place] 1.030 Not Available In-Off ice Order Internal [...] DO Not Attach Compendium, Do Not Delete/merge, [id number] 10/29/2020 10:14:09 10/30/19 21 10/29/2020 urina lysis , dipst ick Appearance Slight ly Cloudy Not Available In-Office Order Internal Use Only DO Not Attach Compendium DO Not Attach Compendium, Do Not Delete/merge, [id number] 10/29/2020 10:14:09 10/30/19 21 10/29/2020 urina lysis , dipst ick Color Yellow Not Available In-Office Order Internal Use Only DO Not Attach Compendium DO Not Attach Compendium, Do Not Delete/merge, [id number] 10/29/2020 10:14:09 02/06/20 22 02/06/2022 NUSWA B VAGIN ITIS PLUS (VG+) atopobium vaginae Low - 0 score Not Available [facility] ([facility]) [address] [place], [address], 02/09/2022 05:06:43 02/06/20 22 02/06/2022 NUSWA B VAGIN ITIS PLUS (VG+) bvab 2 Low - 0 score Not Available [facility] ([facility]) [address] [place], [address], 02/09/2022 05:06:43 02/06/20 22 02/06/2022 NUSWA B [...] istra tion. Not Available [facility] ([facility]) [address] [facility], [place], [address], 02/09/2022 05:06:43 02/06/2002/07/2022 NUSWA B VAGIN ITIS PLUS (VG+) little albicans, GIAN Negati ve negati ve Not Available [facility] ([facility]) [address] [place], [address], 02/09/2022 05:06:43 02/06/2002/07/2022 NUA B VAGIN ITIS PLUS (VG+) little glabrata, GIAN Negati ve negati ve Not Available [facility] ([facility]) [address] [place], [address], 02/09/2022 05:06:43 02/06/2002/09/2022 NUSWA B VAGIN ITIS PLUS (VG+) trich vag by GIAN Negati ve negati ve Not Available [facility] ([facility]) [address] [place], [address], 02/09/2022 05:06:43 02/06/2002/09/2022 NUSWA B VAGIN ITIS PLUS (VG+) chlamydia trachomatis, GIAN Negati ve negati ve Not Available [facility] ([facility]) [address] [place], [address], 02/09/2022 05:06:43 02/06/2002/09/2022 NUSWA B VAGIN ITIS PLUS (VG+) neisseria gonorrhoeae, GIAN Negati ve negati ve Not Available [facility] ([facility]) [address] [place], [address], 02/09/2022 05:06:43 Result Notes None recorded. Problems Name Problem SNOMED Code Status Onset Date Resolution Date Notes Provider Name and Address Organization Details Recorded Time Menopause Active 2020 Ace teague, [facility] 1 12:04:54 Gastroesophage al reflux disease 857704253 Active 2020 Ace teague, [facility] 1 12:05:02 Hyperlipidemia 53284838 Active 2020 Ace teague, [facility] 1 12:05:12 Problem Notes None recorded. Procedures Surgical History Date Name Laterality Status Provider Name and Address Organization Details Recorded Time 2 Date of Last Pap Smear completed Carly Wakefield MA [facility] 02/05/2022 11:53:38 7 Most Recent Mammogram completed Cierra Jordan MA [facility] 09/23/2016 16:18:17 Imaging Results None recorded. Procedure [...] Updated DateTime 10/29/2020 161.29 cm 24.9 kg/m2 38672.71 g 122 mm[Hg] 80 mm[Hg] Xiomara Lama MA [facility] 10:08:31 Date Recorded Body weight Systolic blood pressure Diastolic blood pressure Provider Name and Address Organization Details Last Updated DateTime 02/05/2022 09880.79 g 132 mm[Hg] 84 mm[Hg] Carly Wakefield MA [facility] 02/05/2022 11:50:34 Date Recorded Body height Body weight Body mass index (BMI) Systolic blood pressure Diastolic blood pressure Provider Name and Address Organization Details Last Updated DateTime 09/23/2016 161.29 cm 79192.63 g 26.7 kg/m2 130 mm[Hg] 70 mm[Hg] Cierra Jordan MA [facility] 7 16:14:40 Social History Question Answer Notes LastModified by Organizat ion Details LastModified Time Tobacco Smoking Status Never Smoker Cierra Jordan MA null, [facility] 09/23/2016 16:22:36 Do You Have An Advance Directive? No Information not available 09/23/2016 Is Blood Transfusion Acceptable In An Emergency? Yes Information not available 09/23/2016 What Is Your Level Of Caffeine Consumption? Moderate Information not available 09/23/2016 How Much Tobacco Do You Chew? None Information not available 09/23/2016 What Type Of Diet Are You Following? REGULAR Information not available 09/23/2016 Education 12 Information no t available 09/23/2016 Live Alone Or With Others? [...] Functional Status Question Answer Note LastModified by Organizat ion Details LastModified Time What is your level of alcohol consumption? Occasional Information not available 09/23/2016 Are you currently employed? 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 Heavy Information [...] High Blood Pressure N Breast Cancer N Depression N Blood Clots N Lung Disease N Breast Problem N Anesthesia Complications N Headaches/Migraines N Anxiety Disorder N Muscle, Joint, or Bone Problems N Polyps N Infertility N Acid Reflux (GERD) Y Cancer N Endometriosis N High Cholesterol Y Liver Disease N Thyroid Problems N Kidney or Bladder Problems N GI Problems N Acne Y Eating Disorder N Anemia N Diabetes N Ovarian Cancer N Blood Transfusions N Seizures/Epilepsy N Abuse/Domestic Violence N Asthma N Hepatitis N Heart Disease N Pre-Eclampsia N Osteoporosis [...] completed MANOLO BURNS MD Attn: Accounting[address] [place], [address], [place] [facility] 02/05/2022 12:01:01 Influenza, MDCK, quadrivalent, PF 04/25/2019 completed MANOLO BURNS MD Attn: Accounting[address] [place], [address], [place] [facility] 02/05/2022 12:01:01 COVID-19, mRNA, LNP-S, PF, 30 mcg/0.3 mL dose, minnie-sucrose 10/29/2021 completed MANOLO BURNS MD Attn: Accounting[address] [place], [address], [place] [facility] 02/05/2022 12:01:01 Influenza, split virus, quadrivalent, PF 03/24/2021 completed MANOLO BURNS MD Attn: Accounting[address] [place], [address], [place] [facility] 02/05/2022 12:01:01 Tdap 06/24/2020 completed MANOLO BURNS MD Attn: Accounting[address] [facility], [place], [place], [address] [place] [address], [place] [facility] 02/05/2022 12:01:01 COVID-19, mRNA, LNP-S, PF, 30 mcg/0.3 mL dose 08/04/2020 completed MANOLO BURNS MD Attn: Accounting[address] [facility], [place], [place], [address] [place] [address], [place] [facility] 02/05/2022 12:01:01 COVID-19, mRNA, LNP-S, PF, 30 mcg/0.3 mL dose 07/09/2020 completed MANOLO BURNS MD Attn: Accounting[address] [place], [place], [address] [place] [address], [place] [facility] 02/05/2022 12:01:01 Influenza, split virus, quadrivalent, PF 01/02/2020 completed MANOLO BURNS MD Attn: Accounting[address] [facility], [place], [place], [address] [place] [address], [place] [facility] 02/05/2022 12:01:01 Past Encounters Encounter ID Performer Location Encounter Start Date Encounter Closed Date Diagnosis/Indication Diagnosis SNOMED-CT Code Diagnosis ICD10 Code Diagnosis Note [id number] [facility] [address] [place] [id number] 09/23/2016 15:33:22 09/23/2016 17:43:36 Gynecologic examination 96110969 Z01.419 Z11.51 Inguinal hernia 90765209 0 K40.90 [id number] [facility] [place] [facility] [address] [place] [id number] 10/29/2020 09:39:58 11/07/2020 14:48:43 Menopause 748932273 N95.1 Gynecologi c examination 69142620 Z01.419 Z11.51 Screening mammography 24 184427 Z12.31 Screening for osteoporosis 702828706 Z13.820 Atrophic vaginitis 02267 000 N95.2 [id number] MD Daisha CRUM ([facility]) [address] [place] [address] 02/05/2022 11:26:14 02/17/2022 15:44:30 Gynecologic examination [id number]|2024-09-08 10:41:00|2024-09-08 10:41:00|XMS_ITS|BK[facility] DAEMON|External Medical Summaries|[id number]|" CONTINUITY OF CARE DOCUMENT Created on: September 08, 2024 Cynthia Aleman : 1955 Sex: Female Author Name terrance carlos Address Unknown Organization [facility] Address [address] [place] [address] Phone [phone] Care Team Providers Care Treasury Agent Name Role Phone terrance carlos Unavailable Unavailable INSURANCE PROVIDERS Payer name Policy type / Coverage type [place] red libertarian ID [facility] [id number] 1 [email or web address] PPO Other [id number] "
--- OUTSIDE RECORDS SUMMARY | 2024-09-08 10:41 | XMS_ITS | Encounter Summary ---
Author Organization [facility] Care Team Providers Care Inventory Specialist Name Role Phone Any Vasquez Primary Care Provider [phone] Kingsley Denise MD Primary Care Provider [phone] Jaylin King MD Primary Care Provider Xiomara Call NP Primary Care Provider [phone] Vish Corona MD Unavailable [phone] Kavita Ramirez MD Unavailable [phone] Encounter Details Date Type Department Care Team (Latest Contact Info) Description 02/01/2018 Orders Only [facility] CLINCONV ProviderIsaias MD [address] [place], [place] [id number] Social History Tobacco Use Types Packs/Day Years Used Date Smoking Tobacco: Never Assessed Comments Unknown Sex and Gender Information Value Date Recorded Sex Assigned at Not on file 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 Gender Identity Female 12/26/2020 9:54 PM CDT [...] on filedocumented in this encounter Care Teams Inventory Specialist Relationship Specialty Start Date End Date Any Vasquez PA PCP - General Tanning Wheel Operator 02/20/20 01/13/22 Kingsley Denise MD PCP - General Family Medicine 01/14/22 05/27/23 Jaylin King MD PCP - General Family Medicine 05/28/23 07/13/24 Xiomara Call NP [id number] [id number] PCP - General Family Medicine 07/14/24 Vish Corona MD [address] [facility] [address] [place] [address] Consulting Physician Cardiology 07/14/24 Kavita Ramirez MD [address] [address] Consulting Physician Obstetrics and Gynecology 07/14/24 documented as of this encounter
--- OUTSIDE RECORDS SUMMARY | 2024-09-08 10:41 | XMS_ITS | Clinical Summary ---
Author Organization [facility] [address] [facility] Address [address] [place] [address] Care Team Providers Care Follow Up Manager Name Role Phone Xiomara Call NP Primary Care Provider [phone] Vish Corona MD Unavailable [phone] Kavita Ramirez MD Unavailable [phone] Allergies No known active allergies Medications latanoprost [...] 04/24/2024 Assessment & Plan (06/05/2024 9:34 AM BOOKBINDING MACHINE OPERATOR): To continue with steroid Use reviewed. Assessment & Plan (04/24/2024 10:06 AM BOOKBINDING MACHINE OPERATOR): It is looking rough today To use [...] 05/12/2023 Assessment & Plan (05/12/2023 5:48 PM BOOKBINDING MACHINE OPERATOR): Noted on review of chart. We will need a repeat bone density in 2 years to monitor Slow transit constipation 2022 Assessment & Plan (04/24/2024 10:07 AM BOOKBINDING MACHINE OPERATOR): Treatments discussed Hemorrhoidal treatment reviewed. Stenosis of right carotid artery 08/18/2021 Assessment & Plan (08/23/2023 5:22 PM CDT): Chronic. Asymptomatic. Continue Eliquis and high-intensity statin. Target LDL least less than 70 Assessment & Plan (05/12/2023 5:44 PM BOOKBINDING MACHINE OPERATOR): Chronic. Risk factor modification recommended with high-intensity [...] time. Assessment & Plan (06/30/2021 11:18 AM BOOKBINDING MACHINE OPERATOR): Will refer to PT for further evaluation, [...] CDT): Continue per Dr. Loren Alvarado with [facility] Assessment & Plan (12/31/2020 8:48 [...] flares Assessment & Plan (05/12/2023 5:44 PM BOOKBINDING MACHINE OPERATOR): Chronic. Patient reports headache frequency did not [...] office. Assessment & Plan (06/30/2021 11:17 AM BOOKBINDING MACHINE OPERATOR): Add prn maxalt. Discussed adding topamax or [...] daily Assessment & Plan (05/12/2023 5:43 PM BOOKBINDING MACHINE OPERATOR): Chronic. Tolerates rosuvastatin. Continue. Optimal LDL goal [...] Crestor. Assessment & Plan (06/30/2021 11:16 AM BOOKBINDING MACHINE OPERATOR): We reviewed recent labs Will start crestor [...] know Assessment & Plan (05/12/2023 5:43 PM BOOKBINDING MACHINE OPERATOR): Chronic. Stable on prior imaging. Patient reports [...] stable. Assessment & Plan (06/24/2020 11:49 AM BOOKBINDING MACHINE OPERATOR): Has appt pending for repeat mri and with neurologist that she will keep Assessment & Plan (03/25/2020 10:45 AM BOOKBINDING MACHINE OPERATOR): appt pending with Dr. Dutta, will await [...] 05/12/202305/27 Assessment & Plan (04/24/2024 10:06 AM BOOKBINDING MACHINE OPERATOR): None since her last visit Assessment & [...] plan. Assessment & Plan (05/12/2023 5:45 PM BOOKBINDING MACHINE OPERATOR): Patient notes that she has had 2 brief episodes vaginal spotting over the last few months. Denies any heavy bleeding. Has currently not been under the care of paper tester. No current vaginal bleeding. We will [...] dizziness last week but it resolved promptly. [place] like her blood pressure may have dropped [...] 24 Assessment & Plan (06/24/2020 9:50 AM BOOKBINDING MACHINE OPERATOR): Weight/BMI is in healthy range. Continue healthy lifestyle to maintain. Chronic left-sided headaches 06/24/2020 07/13/2021 Assessment & Plan (06/24/2020 11:49 AM BOOKBINDING MACHINE OPERATOR): Advised sleep study, which she declines at this time. Advised otc boil and bite mouth guard. Advised cutting back on jawbreakers and popcorn. Need for diphtheria-tetanus- pertussis (Tdap) vaccine 06/24/2020 06/30/2021 Assessment & Plan (06/24/2020 11:49 AM BOOKBINDING MACHINE OPERATOR): Will update tdap today. Nausea 03/25/2020 05/12/2023 Assessment & Plan (03/25/2020 10:45 AM BOOKBINDING MACHINE OPERATOR): Add prn zofran Encounter to establish care 02/22/2020 02/22/2020 Snoring 02/22/2020 05/12/2023 Assessment & Plan (06/24/2020 11:49 AM BOOKBINDING MACHINE OPERATOR): Advised sleep study - she declines at [...] 08/04/2020 Assessment & Plan (03/25/2020 10:46 AM BOOKBINDING MACHINE OPERATOR): She declines abortive medication, such as maxalt, [...] needed Assessment & Plan (06/24/2020 11:48 AM BOOKBINDING MACHINE OPERATOR): Stable. Will continue medication same at this time. Encounters Date Type Department Care Team Description 08/23/2024 Results Follow-Up [facility] Medical [facility] Primary Care at [address] [address] Xiomara Call NP Abnormal mammogram of right breast (Primary Dx) 08/15/2024 10:15 AM CDT Office Visit [facility] Cardiology [address] [facility] [address] [place] [address] Vish Corona MD Atrial fibrillation, unspecified type (HCC) (Primary Dx); Paroxysmal atrial fibrillation (HCC); Mixed hyperlipidemia 07/14/2024 9:00 AM CDT Office Visit [facility] Primary Care at [address] [address] Xiomara Call NP Migraine without aura and without status migrainosus, not intractable (Primary Dx); Bilateral carotid artery stenosis; Meningioma (HCC); Mixed hyperlipidemia; Paroxysmal atrial fibrillation (HCC) 07/03/2024 Results Follow-Up [facility] Care [address] [place] [phone] Indira Myers NP from Last 3 Months Immunizations Immunization Administration [...] on file Legal Sex Female 12:03 AM BOOKBINDING MACHINE OPERATOR Gender Identity Female 12/26/2020 9:54 PM CDT Sexual Orientation Straight 12/26/2020 9: 54 PM CDT 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 Industry 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 Job 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 Date 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 - [employer] Not on file Not on [...] Health Maintenance Due Date Last Done Comments Hepatitis B Screening 1975 Zoster Vaccine (1 of 2) 2007 Covid-19 Vaccine (2023-2 5 season) 2024 01/18/2024, 02/09/2023, 10/12/2022, Additional history exists Well Visit 65+ 08/22/2024 08/23/2023, 04/26, 02/22/2020 Osteoporosis Screening-Bone Density Scan 11/26/2024 11/26/2022, 10/29/2020 Depression Screening 07/14/2025 07/14/2024, 06/05/2024, 10/18/2023, Additional history exists Fall Risk Assessment 07/14/2025 07/14/2024, 05/12/2023, 05/14/2022, Additional history exists Breast Cancer Screening-Mammogram 08/22/2025 08/22/2024, 07/22/2023, 03/20/2020, Additional history exists DTaP/Tdap/Td Vaccine (2 - Td or Tdap) 06/24/2030 06/24/2020 Colon Cancer Screening-Colonoscopy 05/12/2032 05/12/2022, 01/09/2016 Pneumococcal vaccine 65+ Completed 05/14/2022 Hepatitis C Screening Completed 05/24/2023 Cervical Cancer Screening Discontinued 08/04/2023 Influenza Vaccine Completed 01/18/2024, , 02/13/2022, Additional history exists Procedures Procedure Name Priority Date/Time Associated Diagnosis Comments SCREENING MAMMOGRAM Schedule Routine, Read Routine (OP Routine) 08/22/2024 10:39 AM CDT ECG 12-LEAD Routine 08/15/2024 9:39 AM CDT [...] 08/04/2023 10:33 AM CDT Well woman exam HEPATITIS C ANTIBODY Routine 05/24/2023 7:29 AM BOOKBINDING MACHINE OPERATOR Laboratory examination ordered as part of a complete physical examination Encounter for hepatitis C screening test for low risk patient DEXA AXIAL SKELETON BONE DENSITY 1 OR MORE SITES Schedule Routine, Read Routine (OP Routine) 11/26/2022 8:40 AM CDT Postmenopausal status COLONOSCOPY Routine 05/12/2022 from Last 3 Months or Most Recently Relevant to Health Maintenance Results * Screening Mammogram (08/22/2024 10:39 AM CDT) Anatomical Region Laterality Modality Breast N/A Mammography Historical Provider IMG MAMMO PROCEDURES Irene l Result * ECG 12 lead (08/15/2024 9:39 AM CDT) Vish Corona MD ECG ORDERABLES Edited Result - Final * Thyroid Function [place] (07/03/2024 7:59 AM CDT) TSH 1.89 0.40 - 4.50 mIU/L [facility] Blood 07/03/2024 7:59 AM CDT 07/03/2024 8:00 AM CDT Narrative [facility] - 07/03/2024 5:15 PM CDT FASTING:YES FASTING: YES Dinora Burkett NP LAB BLOOD ORDERABLES Fin al Result [facility] [address] [place] [address] * CBC with auto differential (07/03/2024 7:59 AM CDT) WBC 5.8 3.8 - 10.8 Thousand/u L [facility] RBC, POC 4.52 3.80 - 5.10 Million/uL [facility] Hgb 14.0 11.7 - 15.5 g/dL [facility] Hct 42.6 35.0 - 45.0 % [facility] MCV 94.2 80.0 - 100.0 fL [facility] MCH 31.0 27.0 - 33.0 pg [facility] MCHC 32.9 32.0 - 36.0 g/dL [facility] Comment: For adults, a slight decrease in the calculated MCHC value (in the range of 30 to 32 g/dL) is most likely not clinically significant; however, it should be interpreted with caution in correlation with other red cell parameters and the patient's clinical condition. Rdw 13.1 11.0 - 15.0 % [facility] Platelets 225 140 - 400 Thousand/u L [facility] MPV 10.5 7.5 - 12.5 fL [facility] Neutrophils, abs 3,126 1,500 - 7,800 cells/uL [facility] Lymphocytes, abs 1,786 850 - 3,900 cells/uL [facility] Monocyte abs 667 200 - 950 cells/uL [facility] Eosinophils, abs 180 15 - 500 cells/uL [facility] Basophils, abs 41 0 - 200 cells/uL [facility] Neutrophils 53.9 % [facility] Lymphocyte pct 30.8 % [facility] Monocytes 11.5 % [facility] Eosinophils 3.1 % [facility] Basophils 0.7 % [facility] Blood 07/03/2024 7:59 AM CDT 07/03/2024 8:00 AM CDT Narrative [facility] - 07/03/2024 5:15 PM CDT FASTING:YES FASTING: YES us Dinora Tawaina Burkett EDUCATION SPEC LAB BLOOD ORDERABLES Fin al Result CARL [facility] [address] [place] [address] * Lipid panel (07/03/2024 7:59 AM CDT) Cholesterol 138 <200 mg/dL [facility] [place] HDL 62 > OR = 50 mg/dL [facility] [place] Triglycerides 104 <150 mg/dL [facility] [place] LDL 57 mg/dL (calc) Carl [facility] [place] Comment: Reference range: <100 Desirable range <100 mg/dL for primary prevention; <70 mg/dL for patients with CHD or diabetic patients with > or = 2 CHD risk factors. LDL-C is now calculated using the Chaz calculation, which is a validated novel method providing better accuracy than the Friedewald equation in the estimation of LDL-C. Alverto BORJAS et al. MILAD. 2013;310(19): 8828-3383 (http://education.PLC Diagn[employer]/faq/BWT721) Chol/HDL ratio 2.2 <5.0 (calc) [facility] [place] Non-HDL, (LDL+VLDL) 76 <130 mg/dL (calc) [facility] [place] Comment: For patients with diabetes plus 1 major ASCVD risk factor, treating to a non-HDL-C goal of <100 mg/dL (LDL-C of <70 mg/dL) is considered a therapeutic option. Blood 07/03/2024 7:59 AM CDT 07/03/2024 8:00 AM CDT Narrative [facility] - 07/03/2024 5:15 PM CDT FASTING:YES FASTING: YES Dinora Burkett EDUCATION SPEC LAB BLOOD ORDERABLES Fin al Result [facility] [address] [place] [address] * Comprehensive metabolic panel (07/03/2024 7:59 AM CDT) Glucose 88 65 - 99 mg/dL [facility] [place] Comment: Fasting reference interval BUN 14 7 - 25 mg/dL Carl [facility] [place] Creatinine 0.87 0.50 - 1.05 mg/dL Carl [facility] [place] eGFR 73 > OR = 60 mL/min/1.7 3m2 [facility] [place] BUN/creat ratio SEE NOTE: 6 - 22 (calc) [facility] [place] Comment: Not Reported: BUN and Creatinine are within reference range. Sodium 142 135 - 146 mmol/L [facility] [place] Potassium, pl 4.1 3.5 - 5.3 mmol/L [facility] [place] Chloride 105 98 - 110 mmol/L [facility] [place] CO2 29 20 - 32 mmol/L [facility] [place] Calcium 9.5 8.6 - 10.4 mg/dL [facility] [place] Protein, sr 7.0 6.1 - 8.1 g/dL [facility] [place] Albumin 4.5 3.6 - 5.1 g/dL [facility] [place] GLOBULIN 2.5 1.9 - 3.7 g/dL (calc) [facility] [place] Alb/glob ratio 1.8 1.0 - 2.5 (calc) [facility] [place] Bilirubin, total 0.8 0.2 - 1.2 mg/dL [facility] [place] Alk phos 55 37 - 153 U/L [facility] [place] AST 19 10 - 35 U/L [facility] [place] ALT (SGPT) 15 6 - 29 U/L [facility] [place] Blood 07/03/2024 7:59 AM CDT 07/03/2024 8:00 AM CDT Narrative [facility] - 07/03/2024 5:15 PM CDT FASTING:YES FASTING: YES us Dinora Burkett NP LAB BLOOD ORDERABLES Fin al Result [facility] [address] [place] [address] * Pap and HPV, reflex to HPV Genotypes (08/04/2023 10:33 AM CDT) CLINICAL INFORMATION: [facility] Comment:SCREENING LMP [facility] Comment:POSTMENO Previous Pap [facility] Comment:NONE GIVEN Prev. Bx [facility] Comment:NONE GIVEN SOURCE: [facility] Comment:Cervix, Endocervix Pap, specimen adequacy [facility] Comment:SATISFACTORY FOR YOLI LUATION HPV interp [facility] Comment: Cytology Results: Negative for intraepithelial lesion or malignancy. Atrophic pattern; predominantly parabasal cells COMMENTS [facility] Comment: This Pap test has been evaluated with computer assisted technology. [facility] Comment: AMW, CT(ASCP) CT screening location: [place] [address] [place] [id number]|2024-09-08 10:41:00|2024-09-08 10:41:00|XMS_ITS|BKG DAEMON|External Medical Summaries|[id number]|" Referral Summary Created on: September 08, 2024 Cynthia Aleman : 1955 Sex: Female Author Organization [facility] [address] [facility] Address [facility] [place] [address] Care Team Providers Care Follow Up Manager Name Role Phone Xiomara Call NP Primary Care Provider [phone] iVsh Corona MD Unavailable [phone] Kavita Ramirez MD Unavailable [phone] Encounters Date Type Department Care Team Description 08/23/2024 Results Follow-Up [facility] Medical [facility] Primary Care at [address] [address] Xiomara Call NP Abnormal mammogram of right breast (Primary Dx) 08/15/2024 10:15 AM CDT Office Visit [facility] Cardiology [address] [place] [address] [address] [place] [address] Vish Corona MD Atrial fibrillation, unspecified type (HCC) (Primary Dx); Paroxysmal atrial fibrillation (HCC); Mixed hyperlipidemia 07/14/2024 9:00 AM CDT Office Visit [facility] Medical [facility] Primary Care at [address] [phone] Xiomara Call NP Migraine without aura and without status migrainosus, not intractable (Primary Dx); Bilateral carotid artery stenosis; Meningioma (HCC); Mixed hyperlipidemia; Paroxysmal atrial fibrillation (HCC) 07/03/2024 Results Follow-Up [facility] Virtual Care [address] [place] [address] Indira Myers NP from Last 3 Months Allergies No known [...] 04/24/2024 Assessment & Plan (06/05/2024 9:34 AM BOOKBINDING MACHINE OPERATOR): To continue with steroid Use reviewed. Assessment & Plan (04/24/2024 10:06 AM BOOKBINDING MACHINE OPERATOR): It is looking rough today To use [...] 05/12/2023 Assessment & Plan (05/12/2023 5:48 PM BOOKBINDING MACHINE OPERATOR): Noted on review of chart. We will need a repeat bone density in 2 years to monitor Slow transit constipation 2022 Assessment & Plan (04/24/2024 10:07 AM BOOKBINDING MACHINE OPERATOR): Treatments discussed Hemorrhoidal treatment reviewed. Stenosis of right carotid artery 08/18/2021 Assessment & Plan (08/23/2023 5:22 PM CDT): Chronic. Asymptomatic. Continue Eliquis and high-intensity statin. Target LDL least less than 70 Assessment & Plan (05/12/2023 5:44 PM BOOKBINDING MACHINE OPERATOR): Chronic. Risk factor modification recommended with high-intensity [...] time. Assessment & Plan (06/30/2021 11:18 AM BOOKBINDING MACHINE OPERATOR): Will refer to PT for further evaluation, [...] CDT): Continue per Dr. Loren Alvarado with [facility] Assessment & Plan (12/31/2020 8:48 [...] flares Assessment & Plan (05/12/2023 5:44 PM BOOKBINDING MACHINE OPERATOR): Chronic. Patient reports headache frequency did not [...] office. Assessment & Plan (06/30/2021 11:17 AM BOOKBINDING MACHINE OPERATOR): Add prn maxalt. Discussed adding topamax or [...] daily Assessment & Plan (05/12/2023 5:43 PM BOOKBINDING MACHINE OPERATOR): Chronic. Tolerates rosuvastatin. Continue. Optimal LDL goal [...] Crestor. Assessment & Plan (06/30/2021 11:16 AM BOOKBINDING MACHINE OPERATOR): We reviewed recent labs Will start crestor [...] know Assessment & Plan (05/12/2023 5:43 PM BOOKBINDING MACHINE OPERATOR): Chronic. Stable on prior imaging. Patient reports [...] stable. Assessment & Plan (06/24/2020 11:49 AM BOOKBINDING MACHINE OPERATOR): Has appt pending for repeat mri and with neurologist that she will keep Assessment & Plan (03/25/2020 10:45 AM BOOKBINDING MACHINE OPERATOR): appt pending with Dr. Dutta, will await [...] 05/12/202305/27 Assessment & Plan (04/24/2024 10:06 AM BOOKBINDING MACHINE OPERATOR): None since her last visit Assessment & [...] plan. Assessment & Plan (05/12/2023 5:45 PM BOOKBINDING MACHINE OPERATOR): Patient notes that she has had 2 brief episodes vaginal spotting over the last few months. Denies any heavy bleeding. Has currently not been under the care of paper tester. No current vaginal bleeding. We will [...] dizziness last week but it resolved promptly. [place] like her blood pressure may have dropped [...] 24 Assessment & Plan (06/24/2020 9:50 AM BOOKBINDING MACHINE OPERATOR): Weight/BMI is in healthy range. Continue healthy lifestyle to maintain. Chronic left-sided headaches 06/24/2020 07/13/2021 Assessment & Plan (06/24/2020 11:49 AM BOOKBINDING MACHINE OPERATOR): Advised sleep study, which she declines at this time. Advised otc boil and bite mouth guard. Advised cutting back on jawbreakers and popcorn. Need for diphtheria-tetanus- pertussis (Tdap) vaccine 06/24/2020 06/30/2021 Assessment & Plan (06/24/2020 11:49 AM BOOKBINDING MACHINE OPERATOR): Will update tdap today. Nausea 03/25/2020 05/12/2023 Assessment & Plan (03/25/2020 10:45 AM BOOKBINDING MACHINE OPERATOR): Add prn zofran Encounter to establish care 02/22/2020 02/22/2020 Snoring 02/22/2020 05/12/2023 Assessment & Plan (06/24/2020 11:49 AM BOOKBINDING MACHINE OPERATOR): Advised sleep study - she declines at [...] 08/04/2020 Assessment & Plan (03/25/2020 10:46 AM BOOKBINDING MACHINE OPERATOR): She declines abortive medication, such as maxalt, [...] needed Assessment & Plan (06/24/2020 11:48 AM BOOKBINDING MACHINE OPERATOR): Stable. 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 Not on [...] Procedure Name Priority Date/Time Associated Diagnosis Comments SCREENING MAMMOGRAM Schedule Routine, Read Routine (OP Routine) 08/22/2024 10:39 AM CDT ECG 12-LEAD Routine 08/15/2024 9:39 AM CDT [...] 08/04/2023 10:33 AM CDT Well woman exam HEPATITIS C ANTIBODY Routine 05/24/2023 7:29 AM BOOKBINDING MACHINE OPERATOR Laboratory examination ordered as part of a complete physical examination Encounter for hepatitis C screening test for low risk patient DEXA AXIAL SKELETON BONE DENSITY 1 OR MORE SITES Schedule Routine, Read Routine (OP Routine) 11/26/2022 8:40 AM CDT Postmenopausal status COLONOSCOPY Routine 05/12/2022 from Last 3 Months or Most Recently Relevant to Health Maintenance Results * Screening Mammogram (08/22/2024 10:39 AM CDT) Anatomical Region Laterality Modality Breast N/A Mammography us Historical Provider MD IMG MAMMO PROCEDURES Irene l Result * ECG 12 lead (08/15/2024 9:39 AM CDT) Vish Corona MD ECG ORDERABLES Edited Result - Final * Thyroid Function [place] (07/03/2024 7:59 AM CDT) [facility] TSH 1.89 0.40 - 4.50 mIU/L [facility] Blood 07/03/2024 7:59 AM CDT 07/03/2024 8:00 AM CDT Narrative [facility] - 07/03/2024 5:15 PM CDT FASTING:YES FASTING: YES Dinora Burkett EDUCATION SPEC LAB BLOOD ORDERABLES Fin al Result [facility] [address] [place] [address] * CBC with auto differential (07/03/2024 7:59 AM CDT) [facility] WBC 5.8 3.8 - 10.8 Thousand/u L [facility] RBC, POC 4.52 3.80 - 5.10 Million/uL [facility] Hgb 14.0 11.7 - 15.5 g/dL [facility] Hct 42.6 35.0 - 45.0 % [facility] MCV 94.2 80.0 - 100.0 fL [facility] MCH 31.0 27.0 - 33.0 pg [facility] MCHC 32.9 32.0 - 36.0 g/dL [facility] Comment: For adults, a slight decrease in the calculated MCHC value (in the range of 30 to 32 g/dL) is most likely not clinically significant; however, it should be interpreted with caution in correlation with other red cell parameters and the patient's clinical condition. Rdw 13.1 11.0 - 15.0 % [facility] Platelets 225 140 - 400 Thousand/u L [facility] MPV 10.5 7.5 - 12.5 fL [facility] Neutrophils, abs 3,126 1,500 - 7,800 cells/uL [facility] Lymphocytes, abs 1,786 850 - 3,900 cells/uL [facility] Monocyte abs 667 200 - 950 cells/uL [facility] Eosinophils, abs 180 15 - 500 cells/uL [facility] Basophils, abs 41 0 - 200 cells/uL [facility] Neutrophils 53.9 % [facility] Lymphocyte pct 30.8 % [facility] Monocytes 11.5 % [facility] Eosinophils 3.1 % [facility] Basophils 0.7 % [facility] Blood 07/03/2024 7:59 AM CDT 07/03/2024 8:00 AM CDT Narrative [facility] - 07/03/2024 5:15 PM CDT FASTING:YES FASTING: YES Dinora Burkett EDUCATION SPEC LAB BLOOD ORDERABLES Fin al Result [facility] [address] [place] [address] * Lipid panel (07/03/2024 7:59 AM CDT) Cholesterol 138 <200 mg/dL [facility] HDL 62 > OR = 50 mg/dL [facility] Triglycerides 104 <150 mg/dL [facility] LDL 57 mg/dL (calc) [facility] Comment: Reference range: <100 Desirable range <100 mg/dL for primary prevention; <70 mg/dL for patients with CHD or diabetic patients with > or = 2 CHD risk factors. LDL-C is now calculated using the Chaz calculation, which is a validated novel method providing better accuracy than the Friedewald equation in the estimation of LDL-C. Alverto SS et al. MILAD. 2013;310(19): 6385-2094 (http://education.PLC Diagnostics/faq/AZP318) Chol/HDL ratio 2.2 <5.0 (calc) [facility] Non-HDL, (LDL+VLDL) 76 <130 mg/dL (calc) [facility] Comment: For patients with diabetes plus 1 major ASCVD risk factor, treating to a non-HDL-C goal of <100 mg/dL (LDL-C of <70 mg/dL) is considered a therapeutic option. Blood 07/03/2024 7:59 AM CDT 07/03/2024 8:00 AM CDT Narrative [facility] - 07/03/2024 5:15 PM CDT FASTING:YES FASTING: YES Dinora Burkett EDUCATION SPEC LAB BLOOD ORDERABLES Fin al Result [facility] [address] [place] [address] * Comprehensive metabolic panel (07/03/2024 7:59 AM CDT) Pathologist [facility] Glucose 88 65 - 99 mg/dL [facility] [place] Comment: Fasting reference interval BUN 14 7 - 25 mg/dL [facility] [facility] Creatinine 0.87 0.50 - 1.05 mg/dL [facility]NT [facility] eGFR 73 > OR = 60 mL/min/1.7 3m2 [facility]UN[facility]creat ratio SEE NOTE: 6 - 22 (calc) [facility] Comment: Not Reported: BUN and Creatinine are within reference range. Sodium 142 135 - 146 mmol/L [facility] Potassium, pl 4.1 3.5 - 5.3 mmol/L [facility] Chloride 105 98 - 110 mmol/L ENT [facility] CO2 29 20 - 32 mmol/L ENT [facility] Calcium 9.5 8.6 - 10.4 mg/dL ENT [facility] Protein, sr 7.0 6.1 - 8.1 g/dL ENT [facility] Albumin 4.5 3.6 - 5.1 g/dL E[facility] GLOBULIN 2.5 1.9 - 3.7 g/dL (calc) [facility] Alb/glob ratio 1.8 1.0 - 2.5 (calc) ENT [facility] Bilirubin, total 0.8 0.2 - 1.2 mg/dL [facility] Alk phos 55 37 - 153 U/L [facility]NT [facility] [place] AST 19 10 - 35 U/L [facility] [place] ALT (SGPT) 15 6 - 29 U/L [facility] [place] Blood 07/03/2024 7:59 AM CDT 07/03/2024 8:00 AM CDT Narrative [facility] - 07/03/2024 5:15 PM CDT FASTING:YES FASTING: YES Dinora Burkett LAB BLOOD ORDERABLES Fin al Result [place] [address] [place] [address] * Pap and HPV, reflex to HPV Genotypes (08/04/2023 10:33 AM CDT) CLINICAL INFORMATION: [facility] Comment:SCREENING LMP [facility] Comment:POSTMENO Previous Pap [facility] Comment:NONE GIVEN Prev. Bx [facility] Comment:NONE GIVEN SOURCE: [facility] Comment:Cervix, Endocervix Pap, specimen adequacy [facility] Comment:SATISFACTORY FOR YOLI LUATION HPV interp [facility] Comment: Cytology Results: Negative for intraepithelial lesion or malignancy. Atrophic pattern; predominantly parabasal cells COMMENTS [facility] Comment: This Pap test has been evaluated with computer assisted technology. Cast Associate [facility] Comment: AMW, CT(ASCP) CT screening location: [place] [address] [address] [address] Review animal chiropractor [facility] Comment: MMW, CT(ASCP) CT screening location: [place] [address] [address] [address] Comment [facility] Comment: EXPLANATORY NOTE: The Pap is a [...] High Risk E6/E7 Not Detected NOT DETECTED [employer] [facility] Comment: Not Detected High Risk HPV types (16,18,31,33,35,39,45,51,52, 56,58,59,66,68) were not detected. Other HPV types which cause anogenital lesions may be present. The significance of the other types of HPV in malignant processes has not been established. Methodology: Real Time PCR Thin prep 08/04/2023 10:3 3 AM CDT 08/05/2023 1:25 AM CDT us Melodie Sanchez EDUCATION SPEC LAB CYTOLOGY ORDERABLES Final Re sult [facility] [address] [place] [address] [facility] [address] [place] [address] * Hepatitis C antibody Blood (05/24/2023 7:29 AM BOOKBINDING MACHINE OPERATOR) Hep C Ab NON-REACTI VE NON-REACT LOUIS [facility] Comment: HCV antibody was non-reactive. There is no laboratory evidence of HCV infection. In most cases, no further action is required. However, if recent HCV exposure is suspected, a test for HCV RNA (test code 13750) is suggested. For additional information please refer to http://education.My [employer].EnTouch Controls/faq/EZS47r6 (This link is being provided for informational/ educational purposes only.) Blood 05/24/2023 7:29 AM BOOKBINDING MACHINE OPERATOR 05/24/2023 7:29 AM BOOKBINDING MACHINE OPERATOR Narrat
== END 2024-09-08 10:39 | disposition home or self-care (01) ==
LOC: ANHIMG 10:39
PROVIDERS: PCP Nurse Practitioner Family; Visit Provider Nurse Practitioner Family
DX: R92.8 Other abnormal and inconclusive findings on diagnostic imaging of breast (principal)
CPT/HCPCS: 76641; 77061; 77065; G0279

== ENCOUNTER 2025-04-20 10:13 | Outpatient (CLI) | payer MEDICARE, SELFPAY ==
--- NOTE | ~2025-04-20 | DEXA_ITS ---
Bone Density Report Name: JEANE LANDAVERDE Age: 70 Sex: Female Ethnicity: White Date of : 1955 Indication: postmenopausal; screening for osteoporosis; Referring Provider: DANNY, DARIEL Henderson Study: Bone densitometry was performed. Exam Date: April 20, 2025 Accession number: [id number] Bone Density: Region BMD T-score Z-score Classification AP Spine(L1, L2, L3) 0.862 -1.4 0.5 Osteopenia Femoral Neck (Left) 0.548 -2.7 -1.0 Osteoporosis Total Hip (Left) 0.703 -2.0 -0.6 Osteopenia Femoral Neck (Right) 0.547 -2.7 -1.0 Osteoporosis Total Hip (Right) 0.714 -1.9 -0.5 Osteopenia Total Hip Mean 0.708 -2.0 -0.6 Osteopenia World Health Organization criteria for BMD impression classify patients as: Normal (T-score at or above -1.0), Osteopenia (T-score between -1.0 and -2.5), or Osteoporosis (T-score at or below -2.5). 10-year Fracture Risk: FRAX not reported because: Some T-score for Spine Total or Hip Total or Femoral Neck at or below -2.5 Clinical Information Provided by Patient: Patient maximum height was 63 No regular weight bearing exercise Does not regularly consume dairy products Drinks caffeinated beverages Onset of menses at age 16 Number of children 0 Impression: The patient has osteoporosis, based on the Left Femoral Neck T-score. Discussion: INCREASED RISK OF FRACTURE. BONE DENSITY IS UNDESIRABLY LOW AT ONE OR MORE SKELETAL SITES, CONSISTENT WITH POSTMENOPAUSAL OSTEOPOROSIS. This patient's lowest T-score meets the World Health Organization's (WHO) criteria for osteoporosis at one or more sites (T-score -2.5 or below). In untreated patients, the risk of osteoporotic fracture increases approximately two-fold for each 1.0 SD decrease in T-score. Low bone density is not the only risk factor for fracture; also consider factors such as patient's age, frailty or poor health, risk of falling, risk of injury, previous osteoporotic fracture, family history of osteoporosis, cigarette smoking, low body weight, etc. Not everyone with low bone mineral density has osteoporosis; osteomalacia and other metabolic bone disorders should also be considered. Patients who have osteoporosis should be evaluated for specific diseases and conditions (secondary causes) that may cause or contribute to bone loss. The [place] [employer] (AACE) and National Osteoporosis Foundation (NOF) recommend pharmacologic intervention for all postmenopausal women whose T-score is in this range. The patient should follow a healthful lifestyle (good nutrition with adequate calcium and vitamin D, and appropriate weight-bearing exercise). Follow-Up: Consider a repeat BMD and Vertebral Fracture Assessment (VFA) exam in 2 years or sooner if medically necessary, to reassess this patient's status. Reported by: NICK on 04/20/2025 10:58:00 AM. Reviewed, dictated and finalized at location A.
--- OUTSIDE RECORDS SUMMARY | 2025-04-20 10:20 | XMS_ITS | Encounter Summary ---
Author Organization [facility] Facility Care Team Providers Care Call Center Team Leader Name Role Phone Any Vasquez Primary Care Provider [phone] Kingsley Denise MD Primary Care Provider [phone] Jaylin King MD Primary Care Provider Xiomara Call NP Primary Care Provider [phone] Vish Corona MD Unavailable [phone] Kavita Ramirez MD Unavailable [phone] Encounter Details Date Type Department Care Team (Latest Contact Info) Description 02/01/2018 Orders Only [facility] CLINCONV ProviderIsaias MD [address] [place], [place] [id number] Social History Tobacco Use Types Packs/Day Years Used Date Smoking Tobacco: Never Assessed Comments Unknown Sex and Gender Information Value Date Recorded Sex Assigned at Not on file Legal Sex Female 12:03 AM [employer]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 us Historical Provider Final Res ult documented in this encounter Visit Diagnoses Not on filedocumented in this encounter Care Teams Call Center Team Leader Relationship Specialty Start Date End Date Any Vasquez PA PCP - General Medical Practitioners 02/20/20 01/13/22 Kingsley Denise MD PCP - General Family Medicine 01/14/22 05/27/23 Jaylin King MD PCP - General Family Medicine 05/28/23 07/13/24 Xiomara Call FLOAT OPERATOR [id number] [address] PCP - General Family Medicine 07/14/24 Vish Corona MD [address] [facility] [address] [place] [address] Consulting Physician Cardiology 07/14/24 Kavita Ramirez MD [address] [place] [address] Consulting Physician Obstetrics and Gynecology 07/14/24 documented as of this encounter
--- OUTSIDE RECORDS SUMMARY | 2025-04-20 10:20 | XMS_ITS | Clinical Summary ---
Author Organization [facility] [place] [address] [facility] Address [address] [place] [address] Care Team Providers Care Mechanical Integrity Specialist Name Role Phone Xiomara Call NP Primary Care Provider [phone] Vish Corona MD Unavailable [phone] Kavita Ramirez MD Unavailable [phone] Allergies Active Allergy Reactions Criticality Noted Date Comments Tree Pollen-Eucalyptus Sneezing Low 03/05/2020 Medications dronedarone (MULTAQ) 400 mg tabletIndication s:Paroxysmal Atrial Fibrillation Take 1 tablet (400 mg total) by mouth 2 (two) times a day with meals 180 tablet 3 06/18/19 24 Active clobetasoL (TEMOVATE) 0.05 % creamIndications :Vulvar lesion Apply topically 2 (two) times a day For up to three weeks then one week off. 60 g 1 04/24/20 24 Active rosuvastatin (CRESTOR) 40 mg tablet Take 1 tablet by mouth once daily 90 tablet 3 12/01/19 25 Active timoloL (BETIMOL) 0.5 % ophthalmic solution Active atogepant (Qulipta) 60 mg tabletIndication s:Migraine Prevention Take 60 mg by mouth daily 90 tablet 1 01/17/20 25 Active timolol (TIMOPTIC) 0.5 % ophthalmic solution 1 drop 2 (two) times a day 01/23/20 25 Active rizatriptan (MAXALT) 10 mg tabletIndication s:Migraine Take 1 tablet (10 mg total) by mouth once as needed for migraine May repeat in 2 hours if unresolved. Do not exceed 30 mg in 24 hours. 18 tablet 02/23/20 25 026 Active ondansetron (ZOFRAN) 4 mg tabletIndication s:Migraine without aura and without status migrainosus, not intractable Take 1 tablet (4 mg total) by mouth every 8 (eight) hours as needed for nausea or vomiting 20 tablet 3 02/23/20 25 Active Eliquis 5 mg tablet TAKE 1 TABLET TWICE DAILY 180 tablet 3 04/02/20 25 Active Eliquis 5 mg tablet TAKE 1 TABLET TWICE DAILY 180 tablet 3 05/18/19 25 025 Discontinued Active Problems Problem Noted Date Diagnosed Date Vulvar lesion 04/24/2024 Assessment & Plan (12/11/2024 10:04 AM CDT): Sx controlled with her steroid cream Will continue on. Doesn't need a refill. Assessment & Plan (06/05/2024 9:34 AM JEWELRY BENCH MOLDER): To continue with steroid Use reviewed. Assessment & Plan (04/24/2024 10:06 AM JEWELRY BENCH MOLDER): It is looking rough today To use [...] Paroxysmal atrial fibrillation 06/17/2023 Assessment & Plan (01/16/2025 9:53 AM CDT): Rate controlled in office. Continuing Multaq, Eliquis. Follows with Cardio Assessment & Plan (07/14/2024 9:31 AM CDT): Rate controlled in office. Continuing Multaq, Eliquis. Follows with Cardio Assessment & Plan (08/23/2023 5:21 PM CDT): Chronic. Symptoms are relatively controlled with rare nighttime heart rate issues. She will continue the Multaq. She is now on chronic Eliquis. Bleeding precautions were recommended. We discussed stroke risk in AFib Senile osteopenia 05/12/2023 Assessment & Plan (12/11/2024 10:18 AM CDT): To bmd Assessment & Plan (05/12/2023 5:48 PM JEWELRY BENCH MOLDER): Noted on review of chart. We will need a repeat bone density in 2 years to monitor Slow transit constipation 2022 Assessment & Plan (04/24/2024 10:07 AM JEWELRY BENCH MOLDER): Treatments discussed Hemorrhoidal treatment reviewed. Stenosis of right carotid artery 08/18/2021 Assessment & Plan (08/23/2023 5:22 PM CDT): Chronic. Asymptomatic. Continue Eliquis and high-intensity statin. Target LDL least less than 70 Assessment & Plan (05/12/2023 5:44 PM JEWELRY BENCH MOLDER): Chronic. Risk factor modification recommended with high-intensity [...] time. Assessment & Plan (06/30/2021 11:18 AM JEWELRY BENCH MOLDER): Will refer to PT for further evaluation, [...] Continue per Dr. Loren Alvarado with [facility] Assessment & Plan (12/31/2020 8:48 AM CDT): Advised ophtho consult, will refer Migraine without aura and wi thout status migrainosus, not intractable 12/31/2020 Assessment & Plan (01/16/2025 9:53 AM CDT): Not at goal, still experiencing 14-15 migraines per month. Pt did not wish to pursue preventative medication at last visit but open to the idea now. Contraindicated to try propranolol d/t bradycardia Refused to try Topamax as pt previously tried and had s/s of weight loss and mood changes. Will prescribe Atogepant 60 mg PO daily for migraine prevention and rizatriptan 10 mg PO as needed for migraine rescue. Follow up in 3 months to evaluate. Assessment & Plan (07/14/2024 9:30 AM CDT): Chronic, pt uses prn Rizatriptan and works well. Discussed preventative medication as she average 12-15 migraines/month. Pt opts to continue the prn Rizatriptan as it has worked well. Assessment & Plan (08/23/2023 5:21 PM CDT): Chronic. Doing well. Continue p.r.n. rizatriptan for flares Assessment & Plan (05/12/2023 5:44 PM JEWELRY BENCH MOLDER): Chronic. Patient reports headache frequency did not [...] office. Assessment & Plan (06/30/2021 11:17 AM JEWELRY BENCH MOLDER): Add prn maxalt. Discussed adding topamax or elavil if needing maxalt frequently. Encouraged ophtho appt as planned. Assessment & Plan (12/31/2020 8:48 AM CDT): Continue with care per neurologist. Will refill her zofran that she uses prn. Hyperlipidemia 10/28/2020 Assessment & Plan (01/16/2025 9:53 AM CDT): Most recent lipid panel controlled. Continues Rosuvastatin. Assessment & Plan (07/14/2024 9:28 AM CDT): Most recent lipid panel controlled. Continues Rosuvastatin. Assessment & Plan (08/23/2023 5:21 PM CDT): Chronic. Controlled. Continue rosuvastatin 40 mg daily Assessment & Plan (05/12/2023 5:43 PM JEWELRY BENCH MOLDER): Chronic. Tolerates rosuvastatin. Continue. Optimal LDL goal [...] Crestor. Assessment & Plan (06/30/2021 11:16 AM JEWELRY BENCH MOLDER): We reviewed recent labs Will start crestor [...] know Assessment & Plan (05/12/2023 5:43 PM JEWELRY BENCH MOLDER): Chronic. Stable on prior imaging. Patient reports [...] stable. Assessment & Plan (06/24/2020 11:49 AM JEWELRY BENCH MOLDER): Has appt pending for repeat mri and with neurologist that she will keep Assessment & Plan (03/25/2020 10:45 AM JEWELRY BENCH MOLDER): appt pending with Dr. Dutta, will await results. Heart murmur 02/22/2020 Assessment & Plan (08/18/2021 1:06 PM CDT): We reviewed recent echo. Will refer to cv for further evaluation and treatment. Assessment & Plan (02/22/2020 10:35 AM CDT): Advised echo to evaluate this history further. She refuses at this time. Medicare annual wellness visit, subsequent 02/21 Overview (12/11/2024): Lab: Pap: 08/04/23 [facility] with PCP [place]: Screening 08/22/24, Dx/usg 09/08/24 (Rt breast asymmetry) both WNL Birads 1Got released to yearly. Colonoscopy: 05/12/22 to repeat? BMD: 11/26/22 Low bone mass -2.3 will repeat this year. Assessment & Plan (01/16/2025 9:54 AM CDT): A yearly Medicare Annual Wellness Visit has been performed today. Cynthia Aleman is up to date on screening tests. She is in need of None- no screening indicated at this time- these have been ordered. She is not up to date on needed preventative vaccinations; She is in need of Influenza, Zoster, and Covid-19 (booster). These have been ordered/arranged unless otherwise indicated. Assessment & Plan (12/11/2024 10:07 AM CDT): Complete exam done To bmd Assessment & Plan (02/22/2020 10:35 AM CDT): Will order screening mammogram Resolved Problems Problem Noted Date Diagnosed Date Resolved Date Postmenopausal bleeding 05/12/202305/27 Assessment & Plan (04/24/2024 10:06 AM JEWELRY BENCH MOLDER): None since her last visit Assessment & [...] plan. Assessment & Plan (05/12/2023 5:45 PM JEWELRY BENCH MOLDER): Patient notes that she has had 2 brief episodes vaginal spotting over the last few months. Denies any heavy bleeding. Has currently not been under the care of general engineering teacher. No current vaginal bleeding. We will refer [...] dizziness last week but it resolved promptly. [place] like her blood pressure may have dropped [...] 24 Assessment & Plan (06/24/2020 9:50 AM JEWELRY BENCH MOLDER): Weight/BMI is in healthy range. Continue healthy lifestyle to maintain. Chronic left-sided headaches 06/24/2020 07/13/2021 Assessment & Plan (06/24/2020 11:49 AM JEWELRY BENCH MOLDER): Advised sleep study, which she declines at this time. Advised otc boil and bite mouth guard. Advised cutting back on jawbreakers and popcorn. Need for diphtheria-tetanus- pertussis (Tdap) vaccine 06/24/2020 06/30/2021 Assessment & Plan (06/24/2020 11:49 AM JEWELRY BENCH MOLDER): Will update tdap today. Nausea 03/25/2020 05/12/2023 Assessment & Plan (03/25/2020 10:45 AM JEWELRY BENCH MOLDER): Add prn zofran Encounter to establish care 02/22/2020 02/22/2020 Snoring 02/22/2020 05/12/2023 Assessment & Plan (06/24/2020 11:49 AM JEWELRY BENCH MOLDER): Advised sleep study - she declines at this time. Assessment & Plan (02/22/2020 10:35 AM CDT): We discussed that her headaches could be secondary to a sleep disorder. She was advised to complete a sleep study and refused at this time. Cluster headache 05/25/2018 08/04/2020 Assessment & Plan (03/25/2020 10:46 AM JEWELRY BENCH MOLDER): She declines abortive medication, such as maxalt, [...] needed Assessment & Plan (06/24/2020 11:48 AM JEWELRY BENCH MOLDER): Stable. Will continue medication same at this time. Encounters Date Type Department Care Team Description 04/16/2025 Telephone [facility] Primary Care at [address] [address] Xiomara Call NP 02/15/2025 8:15 AM CDT Office Visit [facility] [address] [place] [address] [address] [place] [address] Vish Corona MD Atrial fibrillation, unspecified type (HCC) (Primary Dx); High risk medication use from Last 3 Months Immunizations Immunization Administration Dates Next Due Flucelvax Influenza Quad 04/25/2019 Influenza, Quad, Adjuvantate d, Intramuscular 02/09/2023 Influenza, Quadrivalent, Romina l Culture-based MDCK, Preservative Free, Antibiotic Free, Intramuscular 02/13/2022 Influenza, Quadrivalent, Spl it, Preservative Free, Intramuscular 03/24/2021,01/02/2020 Influenza, Trivalent, Adjuva nted, Intramuscular 01/29/2025,01/18/2024 Influenza, Trivalent, Cell Culture-based MDCK, Preservative Free, Antibiotic Free, Intramuscular 04/25/2019 Influenza, Unspecified 02/04/2022,2021(Deferred: Patient Refused) Pfizer SARS-CoV-2 Monovalent Vaccination (12+ Yrs) GORDON-READY TO USE 10/29/2021 Pfizer SARS-CoV-2 Monovalent Vaccination (12+ Yrs) PURPLE 03/17/2021,08/04/2020,07/09/2020 Pneumococcal Conjugate Pcv20 05/14/2022 Tdap 06/24/2020 Surgical History Surgery Date Site/Laterality Comments FOOT SURGERY x 2 WRIST SURGERY OVARIAN CYST REMOVAL CATARACT EXTRACTION, BILATERAL Bilateral October 2024 CATARACT EXTRACTION October 2024 Medical History Medical History Date Comments Headache [...] more points, staff should administer the PHQ-9) 2 01/11/2025 Humiliation, Afraid, Rape, and Kick questionnair e Answer Date Recorded Within the last year, have y ou been afraid of your partner or ex-partner? No 12/11/2024 Within the last year, have y ou been humiliated or emotionally abused in other ways by your partner or ex-partner? No Within the last year, have y ou been kicked, hit, slapped, or otherwise physically hurt by your partner or ex-partner? No 12/11/2024 Within the last year, have y ou been raped or forced to have any kind of sexual activity by your partner or ex-partner? 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 - [employer] Not on file Not on file Not on file Obstetrics History Para Term AB IAB SAB Ectopic Multiple Livin g Live Births 0 0 0 0 0 0 0 0 0 0 0 Last Filed Vital Signs Vital Sign Reading Time Taken Comments Blood Pressure 130/80 02/15/2025 8:19 AM CDT Pulse 49 02/15/2025 8:19 AM CDT Temperature 36.7 C (98 F) 02/15/2025 8:19 AM CDT Respiratory Rate 18 01/01/2022 2:10 PM CDT Oxygen Saturation 99% 02/15/2025 8:19 AM CDT Inhaled Oxygen Concentration - - Weight 59.5 kg (131 lb 3.2 oz) 02/15/2025 8:19 A M CDT Height 157.5 cm (5' 2) 02/15/2025 8:19 AM CDT Body Mass Index 24 02/15/2025 8:19 AM CDT Plan of Treatment Health Maintenance Due Date Last Done Comments Hepatitis B Screening 1975 Zoster Vaccine (1 of 2) 2007 Osteoporosis Screening-Bone Density Scan 04/23/2025 11/26/2022, 10/29/2020 Postponed from 11/26/2024 (Patient declined, but will receive in the future) Covid-19 Vaccine ( season) 2025 01/29/2025, 01/18/2024, 02/09/2023, Additional history exists Breast Cancer Screening-Mammogram 08/22/2025 08/22/2024, 07/22/2023, 03/20/2020, Additional history exists Depression Screening 01/16/2026 01/16/2025, 12/11/2024, 07/14/2024, Additional history exists Fall Risk Assessment 01/16/2026 01/16/2025, 07/14/2024, 05/12/2023, Additional history exists Well Visit 65+ 01/16/2026 01/16/2025, 07/26, 05/14/2022, Additional history exists DTaP/Tdap/Td Vaccine (2 - Td or Tdap) 06/24/2030 06/24/2020 Colon Cancer Screening-Colonoscopy 05/12/2032 05/12/2022, 01/09/2016 Pneumococcal vaccine 65+ Completed 05/14/2022 Hepatitis C Screening Completed 05/24/2023 Cervical Cancer Screening Discontinued 08/04/2023 Influenza Vaccine Completed 01/29/2025, , 02/09/2023, Additional history exists Procedures Procedure Name Priority Date/Time Associated Diagnosis Comments ECG 12-LEAD Routine 02/15/2025 9:08 AM CDT Atrial fibrillation, unspecified type (HCC) High risk medication use SCREENING MAMMOGRAM Schedule Routine, Read Routine (OP Routine) 08/22/2024 10:39 AM CDT PAP AND HPV, REFLEX TO HPV GENOTYPES Routine 08/04/2023 10:33 AM CDT Well woman exam HEPATITIS C ANTIBODY Routine 05/24/2023 7:29 AM JEWELRY BENCH MOLDER Laboratory examination ordered as part of a complete physical examination Encounter for hepatitis C screening test for low risk patient DEXA AXIAL SKELETON BONE DENSITY 1 OR MORE SITES Schedule Routine, Read Routine (OP Routine) 11/26/2022 8:40 AM CDT Postmenopausal status COLONOSCOPY Routine 05/12/2022 from Last 3 Months or Most Recently Relevant to Health Maintenance Results * ECG 12 lead (02/15/2025 9:08 AM CDT) Vish Corona MD ECG ORDERABLES Final Result * Screening Mammogram (08/22/2024 10:39 AM CDT) Anatomical Region Laterality Modality Breast N/A Mammography Historical Provider IMThanh MAMMO PROCEDURES Irene l Result * Pap and HPV, reflex to HPV Genotypes (08/04/2023 10:33 AM CDT) CLINICAL INFORMATION: [facility] Comment:SCREENING LMP [facility] Comment:POSTMENO Previous Pap [facility] Comment:NONE GIVEN Prev. Bx [facility] Comment:NONE GIVEN SOURCE: [facility] Comment:Cervix, Endocervix Pap, specimen adequacy [facility] Comment:SATISFACTORY FOR YOLI LUATION HPV interp [facility] Comment: Cytology Results: Negative for intraepithelial lesion or malignancy. Atrophic pattern; predominantly parabasal cells COMMENTS [facility] Comment: This Pap test has been evaluated with computer assisted technology. Fisheries Diver Fritz [facility] Comment: AMW, CT(ASCP) CT screening location: [place] [address] Administration RAJENDRA Huynh [address] [address] conductor [facility] Comment: MMW, CT(ASCP) CT screening location: [place] [address] Administration RAJENDRA Huynh [address] Comment [facility] Comment: EXPLANATORY NOTE: The Pap is a [...] High Risk E6/E7 Not Detected NOT DETECTED Zelda Florez /Kyle HANDY Comment: Not Detected High Risk HPV types (16,18,31,33,35,39,45,51,52, 56,58,59,66,68) were not detected. Other HPV types which cause anogenital lesions may be present. The significance of the other types of HPV in malignant processes has not been established. Methodology: Real Time PCR Thin prep 08/04/2023 10:3 3 AM CDT 08/05/2023 1:25 AM CDT Melodie Sanchez LAB CYTOLOGY ORDERABLES Final Re sult [place] [address] [address] RAJENDRA Arellano [address] Zelda Florez/[place] [address] [facility] [place] [address] * Hepatitis C antibody Blood (05/24/2023 7:29 AM JEWELRY BENCH MOLDER) Hep C Ab NON-REACTI VE NON-REACT [facility] Comment: HCV antibody was non-reactive. There is no laboratory evidence of HCV infection. In most cases, no further action is required. However, if recent HCV exposure is suspected, a test for HCV RNA (test code 09229) is suggested. For additional information please refer to http://education.[employer]/faq/WME30e7 (This link is being provided for informational/ educational purposes only.) Blood 05/24/2023 7:29 AM JEWELRY BENCH MOLDER 05/24/2023 7:29 AM JEWELRY BENCH MOLDER Narrative [facility] - 05/26/2023 2:05 AM JEWELRY BENCH MOLDER FASTING:YES FASTING: YES Jaylin King MD LAB MICROBIOLOGY - GEN ERAL ORDERABLES Final Result [facility] [address] [place] [address] * Dexa Axial Skeleton Bone Density 1 or 2 Site (11/26/2022 8:40 AM CDT) Anatomical Region Laterality Modality Body N/A Mammography 11/26/2022 4:53 PM CDT Narrative 11/26/2022 4:54 PM CDT EXAM DESCRIPTION: DEXA AXIAL SKELETON BONE DENSITY 1 OR MORE SITES REASON FOR STUDY: 67 y/o year old F with given history of: Post menopausal status. 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 TW: TW Report ID: [id number] Reading Location: [id number] Procedure Note Sadie Garduno MD - 11/26/2022 EXAM DESCRIPTION: DEXA AXIAL SKELETON BONE DENSITY 1 OR MORE SITES REASON FOR STUDY: 67 y/o year old F with given history of: Post menopausal status. 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 TW: TW Report ID: [id number] Reading Location: [place] [address] Kingsley Denise MD IMG DXA PROCEDURES Final Resu lt * Colonoscopy (05/12/2022) Anatomical Region Laterality Modality Other Historical Provider ENDOSCOPY PROCEDURES Irene l Result from Last 3 Months or Most Recently Relevant to Health Maintenance Insurance MEDICARE MEDICARE [facility] MEDICARE SUPPLEMENT MEDICARE [facility] MEDICARE SUPPLEMENT MEDICARE [employer] CLAIMS OFFICE Care Teams Mechanical Integrity Specialist Relationship Specialty Start Date End Date Xiomara Call NP [address] [facility] [address] [place] [address] PCP - General Family Medicine 07/14/24 Vish Corona MD [address] [place] [address] [address] [place] [address] Consulting Physician Cardiology 07/14/24 Kavita Ramirez MD [address] [place] [address] Consulting Physician Obstetrics and Gynecology 07/14/24
--- OUTSIDE RECORDS SUMMARY | 2025-04-20 10:20 | XMS_ITS | Data Portability ---
Author Organization [facility] Juve [facility] Address [address] [place] [address] Care Team Providers Care Trestle Mechanic Name Role Phone MANOLO WEISS Director Operating Room Assessment No assessment recorded. Plan of Treatment Reminders Order Date Submit Date Provider Last Modified By Organization Details Last Modified Time Details Appointments None recorded. Lab vaginal pathogens panel, GIAN+probe , vaginal fluid 2021 022 OTILIA [facility], [address] [facility] [address] [address], [place], [address], 05:06:43 urinalysi s, dipstick 2020 021 opal In-Office Order, Internal Use Only DO Not Attach Compendium DO Not Attach Compendium, Do Not Delete/merge, [id number] 10:47:16 pap, IG + HPV, cervical 2020 021 OTILIA [facility], [address] [facility] [address] [address], [place], [address], 16:12:00 pap, IG + HPV, cervical - please use Z11.51 in addition to code above for HPV testing. 2016 017 OTILIA [facility], 2022 Kai Landrum, [address], [address], 14:10:37 urinalysi s, dipstick 2016 Laurie joseph In-Office Order, Internal Use Only DO Not Attach Compendium DO Not Attach Compendium, Do Not Delete/merge, [id number] 17:09:44 Referral general surgeon referral 2016 017 [email or web address] Not available 17:43:36 Procedures None recorded. Surgeries None recorded. Imaging MAMMO, screening , bilateral 2020 021 [facility] (Imaging), [facility] [facility] [address], [place], [address], 14:55:[address] [facility] (Imaging), [address] [facility] [address], [place], [address], 14:30:47 Medication Orders Imvexxy Maintenan ce Pack 4 mcg vaginal insert 2020 [facility] #90801, [address] [place], [place], [id number], 11:51:15 Calcium with Vitamin D 600 mg-10 mcg (400 unit) tablet 2020 021 [facility] #10591, [address] [place], [place], [id number], 11:53:17 multivita min tablet 2020 021 [facility] #61238, [address] [place], [place], [id number], 11:53:14 raloxifen e 60 mg tablet 2020 021 mmetias [facility] #23949, [address] [place], [place], [id number], 12:18:19 multivita min tablet 2016 017 [facility] #91570, [address] [facility], [place], [place], [id number], 11:53:14 Calcium with Vitamin D 600 mg-10 mcg (400 unit) tablet 2016 017 [facility] #44842, [address] [facility], [place], [place], [id number], 11:53:17 Patient TargetsNo targets recorded. Patient Instructions Encounter Date Encounter Id Patient Instructions Last Modified By Organization Details Last Modified Time 09/23/2016 [id number] inguinal hernia: care instructions [email or web address] Not available 09/23/2016 17:36:11 10/29/2020 [id number] atrophic vaginitis: care instructions [email or web address] Not available 10/29/2020 10:49:09 mammogram: about this test [email or web address] Not available 10/29/2020 10:47:16 mammogram screening patient instructions [email or web address] Not available 10/29/2020 10:47:16 Reason for Referral General Surgeon Referral for Inguinal hernia Referring Physician: Ace Mcnulty, MARKETING AND DEVELOPMENT COORDINATOR, Encounter Date: 09/23/2016 Results Created Date Observation Date Name Description Value Unit Range Abnormal Flag Note LastModifiedBy Organization Detail LastModifiedTime 09/24/19 17 09/23/2016 urina lysis , dipst ick Leukocytes Negati ve Not Available In-Office Order Internal Use Only DO Not Attach Compendium DO Not Attach Compendium, Do Not Delete/merge, [id number] 09/23/2016 16:29:55 09/24/19 17 09/23/2016 urina lysis , dipst ick Nitrite negati ve Not Available In-Office Order Internal Use Only DO Not Attach Compendium DO Not Attach Compendium, Do Not Delete/merge, [id number] 09/23/2016 16:29:55 09/24/19 17 09/23/2016 urina lysis [...] 09/23/2016 urina lysis , dipst ick Specific [place] 1.025 Not Available In-Off ice Order Internal [...] pap, IG + HPV, cervi gisela diagnosis: IRMA T NEGAT [place] FOR INTRA EPITH ELIAL LESIO N AND MALIG SHY . CELLU LAR CHARLES ES ASSOC IATED WITH ATROP HY ARE PRESE NT. Not Available [facility] ([facility]) [address] [place], [address], 09/28/2016 14:10:37 09/25/19 17 09/28/2016 pap, IG + HPV, cervi gisela specimen adequacy: IRMA T SATIS FACTO RY FOR EVALU ATION . ENDOC ERVIC AL AND/O R SQUAM OUS METAP LASTI C CELLS (ENDO CERVI GISELA COMPO NENT) ARE PRESE NT. Not Available [facility] ([facility]) [address] [place], [address], 09/28/2016 14:10:37 09/25/19 17 09/28/2016 pap, IG + HPV, cervi gisela clinician provided ICD10: IRMA Craven Z20.2 Z01.4 19 Z11.5 1 Not Available [facility] ([facility]) [address] [place], [address], 09/28/2016 14:10:37 09/25/19 17 09/28/2016 pap, IG + HPV, cervi gisela performed by: IRMA BOYLE , CYTOT ALTON JEONG T (ASCP ) Not Available [facility] ([facility]) [address] [place], [address], 09/28/2016 14:10:37 09/25/19 17 09/28/2016 pap, IG + HPV, cervi gisela . . Not Available [facility] ([facility]) [address] [place], [address], 09/28/2016 14:10:37 09/25/19 17 09/28/2016 pap, IG [...] TS DO OCCUR . Not Available [facility] ([facility]) [address] [place], [address], 09/28/2016 14:10:37 09/25/19 17 09/28/2016 pap, IG + HPV, cervi gisela test methodology: IRMA Craven THIS LIQUI D BASED THINP REP(R ) PAP TEST WAS FRANK CRONIN WITH THE USE OF AN IMAGE GUIDE Dariana Lundberg Not Available [facility] ([facility]) [address] [facility], [place], [address], 09/28/2016 14:10:37 09/25/19 17 09/28/2016 pap, IG + HPV, cervi gisela HPV aptima NEGATI VE negati ve THIS TEST DETEC TS FOURT EEN HIGH- RISK HPV TYPES (16/1 8/31/ 33/35 /39/4 5/ 51/52 /56/5 8/59/ 66/68 ) WITHO UT DIFFE RENTI ATION . Not Available [facility] ([facility]) [address] [facility], [place], [address], 09/28/2016 14:10:37 10/30/19 21 11/01/2020 IGP, APTIM A HPV diagnosis: Irma craven UNSAT ISFAC TORY FOR EVALU ATION . Not Available [facility] ([facility]) [address] [place], [address], 11/01/2020 16:11:59 10/30/1911/01/2020 IGP, APTIM A HPV recommendati on: Irma craven Sugge st follo w up as clini richie appro priat e. Not Available [facility] ([facility]) [address] [place], [address], 11/01/2020 16:11:59 10/30/19 21 11/01/2020 IGP, APTIM A HPV specimen adequacy: Irma craven Speci men proce ssed and exami yong but unsat isfac tory for evalu ation of epith elial abnor malit y becau se of insuf ficie nt cellu larit y. Not Available [facility] ([facility]) [address] [place], [address], 11/01/2020 16:11:59 10/30/19 21 11/01/2020 IGP, APTIM A HPV clinician provided ICD10: Irma craven Z01.4 19 Z11.5 1 Not Available [facility] ([facility]) [address] [place], [address], 11/01/2020 16:11:59 10/30/19 21 11/01/2020 IGP, APTIM A HPV performed by: Irma root, Cytot echno logis t (ASCP ) Not Available [facility] ([facility]) [address] [place], [address], 11/01/2020 16:11:59 10/30/19 21 11/01/2020 IGP, APTIM A HPV QC reviewed by: Irma olson, Super visor y Cytot echno logis t (ASCP ) Not Available [facility] ([facility]) [address] [place], [address], 11/01/2020 16:11:59 10/30/19 21 11/01/2020 IGP, APTIM A HPV . . Not Available [facility] ([facility]) [address] [place], [address], 11/01/2020 16:11:59 10/30/19 21 11/01/2020 IGP, APTIM [...] ts do occur . Not Available [facility] ([facility]) [address] [facility], [place], [address], 11/01/2020 16:11:59 10/30/19 21 11/01/2020 IGP, APTIM A HPV test methodology: Commen t This liqui d based ThinP rep(R ) pap test was scree yong with the use of an image guide d franchesca yusuf. Not Available [facility] ([facility]) [address] [facility], [place], [address], 11/01/2020 16:11:59 10/30/1911/01/2020 IGP, APTIM A HPV HPV aptima Negati ve negati ve This nucle ic acid ampli ficat ion test detec ts fourt een high- risk HPV types (16,1 8,31, 33,35 ,39,4 5,51, 52,56 ,58,5 9,66, 68) witho ut diffe renti ation . Not Available [facility] ([facility]) [address] [facility], [place], [address], 11/01/2020 16:11:59 10/30/1910/29/2020 urina lysis , dipst ick Leukocytes Negati ve Not Available In-Office Order Internal Use Only DO Not Attach Compendium DO Not Attach Compendium, Do Not Delete/merge, 10/29/2020 10:14:09 10/30/1910/29/2020 urina lysis , dipst ick Nitrite negati ve Not Available In-Office Order Internal Use Only DO Not Attach Compendium DO Not Attach Compendium, Do Not Delete/merge, 10/29/2020 10:14:10/30/19 21 10/29/2020 urina lysis , dipst ick Urobilinogen .2 Not Available In-Of fice Order Internal Use Only DO Not Attach Compendium DO Not Attach Compendium, Do Not Delete/merge, [facility] 10/29/2020 10:14:10/30/19 21 10/29/2020 urina lysis , dipst ick Protein Negati ve Not Available In-Office Order Internal Use Only DO Not Attach Compendium DO Not Attach Compendium, Do Not Delete/merge, [facility] 10/29/2020 10:14:10/30/19 21 10/29/2020 urina lysis , dipst ick pH 5.5 Not Available In-Office Order Internal Use Only DO Not Attach Compendium DO Not Attach Compendium, Do Not Delete/merge, [facility] 10/29/2020 10:14:10/30/19 21 10/29/2020 urina lysis , dipst ick Blood Negati ve Not Available In-Office Order Internal Use Only DO Not Attach Compendium DO Not Attach Compendium, Do Not Delete/merge, [facility] 10/29/2020 10:14:10/30/19 21 10/29/2020 urina lysis , dipst ick Specific [place] 1.030 Not Available In-Off ice Order Internal Use Only DO Not Attach Compendium DO Not Attach Compendium, Do Not Delete/merge, [facility] 10/29/2020 10:14:10/30/19 21 10/29/2020 urina lysis , dipst ick Ketone Negati ve Not Available In-Office Order Internal Use Only DO Not Attach Compendium DO Not Attach Compendium, Do Not Delete/merge, [facility] 10/29/2020 10:14:10/30/19 21 10/29/2020 urina lysis , dipst ick Bilirubin Negati ve Not Available In-Office Order Internal Use Only DO Not Attach Compendium DO Not Attach Compendium, Do Not Delete/merge, [facility] 10/29/2020 10:14:10/30/19 21 10/29/2020 urina lysis , dipst ick Glucose Negati ve Not Available In-Office Order Internal Use Only DO Not Attach Compendium DO Not Attach Compendium, Do Not Delete/merge, [id number] 10/29/2020 10:14:09 10/30/19 21 10/29/2020 urina lysis , dipst ick Appearance Slight ly Cloudy Not Available In-Office Order Internal Use Only DO Not Attach Compendium DO Not Attach Compendium, Do Not Delete/merge, [id number] 10/29/2020 10:14:09 10/30/19 21 10/29/2020 urina lysis , dipst ick Color Yellow Not Available In-Office Order Internal Use Only DO Not Attach Compendium DO Not Attach Compendium, Do Not Delete/merge, [id number] 10/29/2020 10:14:09 02/06/20 22 02/06/2022 NUSWA B VAGIN ITIS PLUS (VG+) atopobium vaginae Low - 0 score Not Available [facility] ([facility]) [address] [place], [address], 02/09/2022 05:06:43 02/06/20 22 02/06/2022 NUSWA B VAGIN ITIS PLUS (VG+) bvab 2 Low - 0 score Not Available [facility] ([facility]) [address] [place], [address], 02/09/2022 05:06:43 02/06/20 22 02/06/2022 NUSWA B [...] lane cteri stics deter mined by [facility] . It has not been clear ed or appro thien by the Food and Drug Admin istra tion. Not Available [facility] ([facility]) [address] [place], [address], 02/09/2022 05:06:43 02/06/2002/07/2022 NUSWA B VAGIN ITIS PLUS (VG+) little albicans, GIAN Negati ve negati ve Not Available [facility] ([facility]) [address] [place], [address], 02/09/2022 05:06:43 02/06/2002/07/2022 NUSWA B VAGIN ITIS PLUS (VG+) little glabrata, GIAN Negati ve negati ve Not Available [facility] ([facility]) [address] [place], [address], 02/09/2022 05:06:43 02/06/2002/09/2022 NUSWA B VAGIN ITIS PLUS (VG+) trich vag by GIAN Negati ve negati ve Not Available [facility] ([facility]) [address] [place], [address], 02/09/2022 05:06:43 02/06/2002/09/2022 NUSWA B VAGIN ITIS PLUS (VG+) chlamydia trachomatis, GIAN Negati ve negati ve Not Available [facility] ([facility]) [address] [place], [address], 02/09/2022 05:06:43 02/06/2002/09/2022 NUSWA B VAGIN ITIS PLUS (VG+) neisseria gonorrhoeae, GIAN Negati ve negati ve Not Available [facility] ([facility]) [address] [place], [address], 02/09/2022 05:06:43 Result Notes None recorded. Problems Name Problem SNOMED Code Status Onset Date Resolution Date Notes Provider Name and Address Organization Details Recorded Time Menopause Active 2020 Ace teague, [facility] 1 12:04:54 Gastroesophage al reflux disease 026749632 Active 2020 Ace teague, [facility] 1 12:05:02 Hyperlipidemia 89368755 Active 2020 Ace teague, [facility] 1 12:05:12 Problem Notes None recorded. Procedures Surgical History Date Name Laterality Status Provider Name and Address Organization Details Recorded Time 2 Date of Last Pap Smear completed Carly Wakefield MA [facility] 02/05/2022 11:53:38 7 Most Recent Mammogram completed Cierra Jordan MA [facility] 09/23/2016 16:18:17 Imaging Results None recorded. [...] Available Vitals Date Recorded Body height Body weight Body mass index (BMI) Systolic And Diastolic Provider Name and Address Organization Details Last Updated DateTime 09/23/2016 161.29 cm 75228.63 g 26.7 kg/m2 130/70 mm[Hg] Cierra Jordan MA [facility] 09/23/2016 16:14:40 Date Recorded Body height Body mass index (BMI) Body weight Systolic And Diastolic Provider Name and Address Organization Details Last Updated DateTime 10/29/2020 161.29 cm 24.9 kg/m2 59653.71 g 122/80 mm[Hg] Xiomara Lama MA [facility] 10/29/2020 10:08:31 Date Recorded Body weight Systolic And Diastolic Provider Name and Address Organization Details Last Updated DateTime 02/05/2022 82895.79 g 132/84 mm[Hg] Carly Wakefield MA [facility] 02/05/2022 11:50:34 Social History Question Answer Notes LastModified by Organizat ion Details LastModified Time Tobacco Smoking Status Never Smoker Cierra Jordan MA [facility] 09/23/2016 16:22:36 Do You Have An Advance [...] 31 Not available 2016 16:21:24 Sister Malignant neoplasm of breast 65 Not available 2016 16:22:01 Sister Migraine Not available 09/23/2016 16:22:24 Medical History Condition Response Other N High Blood Pressure N Breast Cancer N Thyroid Problems N Kidney or Bladder Problems N GI Problems N Depression N Blood Clots N Lung Disease N Acne Y Breast Problem N Eating Disorder N Anemia N Anesthesia Complications N Headaches/Migraines N Anxiety Disorder N Diabetes N Ovarian Cancer N Muscle, Joint, or Bone Problems N Blood Transfusions N Seizures/Epilepsy N Polyps N Infertility N Acid Reflux [...] completed MANOLO BURNS MD Attn: Accounting[address] [place], [address], [place] [facility] 02/05/2022 12:01:01 Influenza, MDCK, quadrivalent, PF 04/25/2019 completed MANOLO BURNS MD Attn: Accounting[address] [place], [address], [place] [facility] 02/05/2022 12:01:01 COVID-19, mRNA, LNP-S, PF, 30 mcg/0.3 mL dose, minnie-sucrose 10/29/2021 completed MANOLO BURNS MD Attn: Accounting[address] [place], [address], [place] [facility] 02/05/2022 12:01:01 Influenza, split virus, quadrivalent, PF 03/24/2021 completed MANOLO BURNS MD Attn: Accounting[address] [place], [address], [place] [facility] 02/05/2022 12:01:01 Tdap 06/24/2020 completed MANOLO BURNS MD Attn: Accounting[address] [facility], [place], [place], [address] [place] [address], [place] [facility] 02/05/2022 12:01:01 COVID-19, mRNA, LNP-S, PF, 30 mcg/0.3 mL dose 08/04/2020 completed MANOLO BURNS MD Attn: Accounting[address] [facility], [place], [place], [address] [place] [address], [place] [facility] 02/05/2022 12:01:01 COVID-19, mRNA, LNP-S, PF, 30 mcg/0.3 mL dose 07/09/2020 completed MANOLO BURNS MD Attn: Accounting[address] [facility], [place], [place], [address] [place] [address], [place] [facility] 02/05/2022 12:01:01 Influenza, split virus, quadrivalent, PF 01/02/2020 completed MANOLO BURNS MD Attn: Accounting[address] [facility], [place], [place], [address] [place] [address], [place] [facility] 02/05/2022 12:01:01 Past Encounters Encounter ID Performer Location Encounter Start Date Encounter Closed Date Diagnosis/Indication Diagnosis SNOMED-CT Code Diagnosis ICD10 Code Diagnosis IMO Codes Diagnosis Note [id number] MD Daisha Willoughby (MARKETING AND DEVELOPMENT COORDINATOR) [address] [place] [phone] 09/23/2016 15:33:22 09/23/2016 17:43:36 Gynecologic examination 06750429 Z01.419 Z11.51 Inguinal hernia 04107399 0 K40.90 [id number] [facility] ([facility]ETING AND DEVELOPMENT COORDINATOR) [address] [place] [phone] 10/29/2020 09:39:58 11/07/2020 14:48:43 Menopause 460869187 N95.1 Gynecologi c examination 43370342 Z01.419 Z11.51 Screening mammography 24 205806 Z12.31 Screening for osteoporosis 849576854 Z13.820 Atrophic vaginitis 48145 000 N95.2 [id number] MD Daisha CRUM (MARKETING AND DEVELOPMENT COORDINATOR) [address] [place] [address] 02/05/2022 11:26:14 02/17/2022 15:44:30 Gynecologic examination 42158619 Z01.411 - Educated on the importance of Self breast awareness. - Discussed the importance of cervical cancer screenings , Last pap 10/29/2020 - NILM, neg hr-HPV- Discussed the importance of exercise.- Nutrition discussed and the importance of a diet rich in fruits, vegetable, whole grains, and lean proteins.- Advised avoidance of tobacco, alcohol, and drugs. Vaginal irritation 67673 6004 N89.8 no concern for yeast infection on exam, likely vaginal atrophy- Nuswab obtained- Encouraged use of moisturisi ng ointment to provide topical relief Health Concerns Section Related Observation LastModified by Organization Detai ls LastModified Time None Recorded Concern Status LastModified by Organization Details LastModified Time None Recorded Advance Directives Directive N: Payers Insurance Date Sequence Insurance Name Policy Number Policy Olivas Covered Member ID Olivas Member ID Guarantor Name 02/17/2022 1 [place] [id number] 3 Cynthia Aleman [id number] Cynthia Aleman Notes Date Note Type Note Provider Name and Address Organization Details Recorded Time 7 text/html Annual Database Marketing Manager Post-MenopausalReported by PatientGenitourinary symptomsFor menopausal symptoms, patient reportsno menopausal symptomsandnormal vaginal lubrication. For vaginal bleeding, patient reportshistory of menopause having occurredandno history of post menopausal bleeding. For urinary symptoms, patient reportsno hematuria,no incontinence,no nocturia, andno urinary frequency. For vulva, patient reportsno genital lesionandno vulvar atrophy. For vagina, patient reportsnormal vaginal dischargeandno vaginal atrophy.Breast symptomsFor breast, patient reportsno breast lump,no nipple discharge, andno breast pain.Psychological symptomsFor sexual complaints, patient reportsno sexual complaints. For psychological symptoms, patient reportsno depressionandno anxiety. 61 yof, G0 here for annual wwe and complaints of abdominal pain Naya Tee MA [facility], [place] - [facility] 09/24/2016 12:09:29 1 text/html Annual Database Marketing Manager Post-MenopausalReported by PatientGenitourinary symptomsFor menopausal symptoms, patient reportsinadequacy of lubrication of vaginal mucosabut reportsno menopausal symptoms. For vulva, patient reportsatrophic vulvabut reportsno genital lesion. For vagina, patient reportsatrophic vaginabut reportsnormal vaginal discharge. For vaginal bleeding, patient reportshistory of menopause having occurredandno history of post menopausal bleeding. For urinary symptoms, patient reportsno hematuria,no incontinence,no nocturia, andno urinary frequency.Breast symptomsFor breast, patient reportsno breast lump,no nipple discharge, andno breast pain.Psychological symptomsFor sexual complaints, patient reportsno sexual complaints. For psychological symptoms, patient reportsno depressionandno anxiety.Preventative measuresFor preventive measures, patient reportsencourage regular mammograms starting age 40,encourage self breast examination,encourage regular exercise,encourage no tobacco use,needs to schedule mammogram,needs to schedule colonoscopy, andneeds to schedule bone density. 65 yof, G0 here for annual wwe complains of vag dryness LORETTA Hansen - [facility] 10/30/2020 10:21:29 2 text/html Annual GYNReported by PatientGenitourinary symptomsFor menstrual cycle, patient reportsperimenopausal (postmenopausal). For urinary symptoms, patient reportsno hematuriaandno incontinence. For vulva, patient reportsno genital lesion. For vagina, patient reportsnormal vaginal discharge.Breast symptomsFor breast, patient reportsno breast pain,no breast lump, andno nipple discharge.ContraceptionFor current contraception, patient reportsmonogamous relationshipandnot sexually active.Endocrine symptomsFor menopausal symptoms, patient reportsinadequacy of lubrication of vaginal mucosabut reportsno menopausal symptoms. For sexual complaints, patient reportsno sexual complaints,no pain during intercourse, andnormal libido.Psychological symptomsFor psychological symptoms, patient reportsno depressionandno anxiety.Preventative measuresFor preventive measures, patient reportsencourage self breast examination,encourage regular exercise, andencourage no tobacco use. ROS as noted in the HPI 66 yo F here for rn obgyn examPrimarily complaining of vaginal irritation and discomfort, [...] scansno history of breast cancer.Had mammogram in [place] recently MANOLO BURNS MD Attn: Accounting,[address] [place], [address], [place] [facility] 02/16/2022 17:46:01 OBGyn Episode No OBEpisode recorded.
== END 2025-04-20 10:14 | disposition home or self-care (01) ==
LOC: ANHFOHIMG 10:17
PROVIDERS: PCP Nurse Practitioner Family; Visit Provider Obstetrics & Gynecology
DX: M85.89 Other specified disorders of bone density and structure, multiple sites (principal); M81.0 Age-related osteoporosis without current pathological fracture; Z78.0 Asymptomatic menopausal state
CPT/HCPCS: 77080